=== PATIENT | female | born 1970 | race Caucasian/White ===

== ENCOUNTER → 2020-09-15 13:24 | Outpatient (BNVA) | payer MEDICAID, SELFPAY | PROVIDERS: PCP Family Medicine; Referring Provider Family Medicine; Visit Provider Physician Assistant | DX: K59.09 Other constipation (principal); K62.5 Hemorrhage of anus and rectum | CPT/HCPCS: 99202 ==

== ENCOUNTER 2020-10-12 08:10 | Outpatient (REF) | payer MEDICAID, SELFPAY | END 2020-10-12 08:11 | disposition home or self-care (01) | LOC: HO.LAB 08:10 | PROVIDERS: Visit Provider Internal Medicine | DX: Z20.822 Contact with and (suspected) exposure to COVID-19 (principal) | CPT/HCPCS: C9803; U0003; U0005 ==

== ENCOUNTER 2020-10-31 08:57 | Day surgery (SDC) | payer MEDICAID, SELFPAY ==
[2020-10-24 13:15] VITALS: BMI 37.1
--- NOTE | 2020-10-28 10:43 | HO.ANESPROP2 ---
Documented by User: Leona Cm 10/28/20 10:45 HPI - Anesthesia Eval Consult details Narrative: 50yo F for Colonoscopy PMFSH Active Problems Active Problems: All Active Problems (Updated 09/27/20 @ 10:14 by Steph Orosco PA-C) Chronic constipation (Acute) Rectal bleeding (Acute) Past Medical History Medical History Chronic constipation Depression HLD (hyperlipidemia) Increased BMI Smoker Social History Social History Household Members Other:: Alone Alcohol intake: never Patient Tobacco Use Status: Current everyday Tobacco user Cigarette Packs Per Day: 1 Cigarettes Per Day: 20.0 Use of substances other than those prescribed or required for medical reasons: Yes Substance Use Frequency: Occasionally Are you DNR?: No Advance Directives: No Advance Directives Information Provided: Yes Current occupational status: employed Meds Allergies Allergy/AdvReac Type Severity Reaction Status Date / Time No Known Allergies Allergy Verified 09/15/20 13:33 Home Medications Medication Instructions Recorded Confirmed Last Taken Type ergocalciferol (vitamin D2) 50 mcg 50 mcg PO .weekly cap 09/15/20 09/15/20 Unknown History (2,000 unit) capsule fluoxetine 10 mg capsule 10 mg PO DAILY 09/15/20 09/15/20 Unknown History polyethylene glycol 3350 17 17 g PO DAILY 09/15/20 09/15/20 Unknown History gram/dose oral powder (Miralax) Exam Exam Date and Time: October 28, 2020 1043 Height,Weight and Vital Signs: Height 5 ft 2 in Weight 92.079 kg Assessment and Plan Assessment Anesthesia Assessment: Chart Reviewed Documented by User: Gayle Morales MD 10/31/20 10:47 PMFSH Past Medical History Medical History Chronic constipation Depression HLD (hyperlipidemia) Increased BMI Smoker Surgical History History of Problems with Anesthesia: No Social History Social History Household Members Other:: Alone Alcohol intake: never Patient Tobacco Use Status: Current everyday Tobacco user Cigarette Packs Per Day: 1 Cigarettes Per Day: 20.0 Use of substances other than those prescribed or required for medical reasons: Yes Substance Use Frequency: Occasionally Are you DNR?: No Advance Directives: No Advance Directives Information Provided: Yes Current occupational status: employed Meds Allergies Allergy/AdvReac Type Severity Reaction Status Date / Time No Known Allergies Allergy Verified 09/15/20 13:33 Home Medications Medication Instructions Recorded Confirmed Last Taken Type ergocalciferol (vitamin D2) 50 mcg 50 mcg PO .weekly cap 09/15/20 09/15/20 Unknown History (2,000 unit) capsule fluoxetine 10 mg capsule 10 mg PO DAILY 09/15/20 09/15/20 Unknown History polyethylene glycol 3350 17 17 g PO DAILY 09/15/20 09/15/20 Unknown History gram/dose oral powder (Miralax) Exam Airway Mallampati Class: II TM Dist: >3cm Neck ROM: Full Loose/Missing/Broken Teeth: No Heart: RRR Lungs: CTA Assessment and Plan Assessment Anesthesia Assessment: Anesthesia Plan Discussed Final Anesthetic Review History of Problems with Anesthesia: No NPO: Yes ASA Class: II Final Preanesthetic Review: Meds/Allgs Chart Reviewed, Consent Obtained/Reviewed and Anes Risks/Benef Reviewed Patient Risk: Low Procedure Risk: Low Anesthetic Plan Anesthetic Plan: MAC: Disposition: Standard PACU
[2020-10-31 10:07] VITALS: BP 145/83; PULSE 87; RESP 16; TEMP 36.1; O2SAT 100
[2020-10-31 10:15] LABS: UPreg QC Valid YES; Urine Pregnancy NEGATIVE (NEGATIVE)
[2020-10-31] MEDS: Lactated Ringers 1,000 ML 100 ML IVCONT (10:45)
--- NOTE | 2020-10-31 11:32 | MHC.SHP ---
Pre-Procedural Eval Section A Date of Service: 10/31/20 The patient is an INPATIENT: No The History & Physical has been completed within 30 days and I have reviewed it.: No Section B Chief Complaint: Rectal Bleeding Relevant Family History (Specify if Yes): No Present Medications: see Short Stay Collaborative assessment Medical History: Significant History (Chronic constipation, hyperlipidemia) History of Previous Operations: No relevant previous surgery Allergies: Allergies Allergy/AdvReac Type Severity Reaction Status Date / Time No Known Allergies Allergy Verified 09/15/20 13:33 Review of Systems Sugical H&P ROS: Negative: Constitution, Cardiovascular and Respiratory and Yes, Specify: Gastrointestinal (rectal bleeding, constipation) Exam Surgical H&P Exam: Normal: Heart, Normal: Lungs, Normal: Extremities and Normal: Abdomen Plan Diagnosis/Plan: Unchanged I have reviewed the history and physical and performed a pertinent physical examination on my patient. No changes have occurred unless specified.
--- NOTE | 2020-10-31 11:40 | P.BOP_ITS ---
Brief Operative Note Date of Service: 10/31/20 Pre-op diagnosis: Colon cancer screening, chronic constipation, rectal bleeding Post-op diagnosis: other (Colon polyps, diverticulosis, hemorrhoids, AVM TC) Procedure: COLONOSCOPY TILL CECUM WITH BIOPSIES AND SNARE POLYPECTOMY Consent: Indications for the procedure and potential complications of bleeding, perforation, reaction to medications and missed diagnosis were discussed with the patient and informed consent was obtained. Instrument: Olympus PCF H 190 L variable stiffness pediatric colonoscope Monitoring: Vital signs and clinical assessment, intermittent blood pressure monitoring, continuous EKG monitoring, Pulse oximetry and Carbon Dioxide monitoring were done throughout the procedure. Colon withdrawl time was 19 minutes. Procedure: The patient was placed in the left lateral decubitis position and pre-procedure medications were administered. After a digital rectal examination of the ano-rectum, the video colonoscope was inserted into the rectum and advanced through the colon to the cecum. The colonoscope was slowly withdrawn in a retrograde panoramic fashion and the colon mucosa was carefully examined including a retroflexed view of the rectum. Findings and interventions are described below. Procedure Difficulty: Without difficulty Findings: Terminal Ileum: Not evaluated Cecum: Normal Ascending Colon: Normal Transverse Colon: A 15 mm sessile polyp in prox TC/hepatic flexure removed with a hot snare A 7-8 mm non-bleeding AVM. Descending Colon: Normal Sigmoid Colon: A 3-4 mm sessile polyp removed with a cold bx. Moderate diverticulosis Rectum: A 10 mm diminutive appearing polyp removed with a cold snare. Ano-rectum: Moderate internal hemorrhoids and perianal skin tags Colon preparation: Good Impression and Post Procedure Diagnosis: Colonoscopy Findings: Three small to medium sized polyps removed Moderate diverticulosis seen in the sigmoid colon Moderate hemorrhoids on retroflexed exam. Plan: Await pathology results Patient has an appointment on 11/30/20 in the [facility] with EMILY Collins . Repeat Colonoscopy interval based on path results - in 3-5 years if polyps are adenomatous and 10 years if polyps are hyperplastic. Above findings were reviewed with the patient and colon polyps and diverticulosis handouts were given in the discharge area Surgeon: Kaylan Hilliard MD Anesthesia: MAC (Dr Morales) Was an Junior Account Manager used for this Procedure?: Yes Junior Account Manager: Danielito Rendon Estimated blood loss (mL): 0 Pathology: other (A- TRANSVERSE COLON POLYP B- SIGMOID POLYP C- RECTAL POLYP) Condition: stable Disposition: PACU
[2020-10-31 12:14] VITALS: BP 123/78; PULSE 92; RESP 16; TEMP 36.8; O2SAT 99
[2020-10-31 12:29] VITALS: BP 131/82; PULSE 85; RESP 18; O2SAT 100
--- NOTE | 2020-11-06 18:12 | P.OP_ITS ---
Operative Note Operative Note Date of Service: 10/31/20 Narrative: Pre-op diagnosis:?Colon cancer screening, chronic constipation, rectal bleeding Post-op diagnosis:?other (Colon polyps, diverticulosis, hemorrhoids, AVM TC) Procedure:?COLONOSCOPY TILL CECUM WITH BIOPSIES AND SNARE POLYPECTOMY Consent: Indications for the procedure and potential complications of bleeding, perforation, reaction to medications and missed diagnosis were discussed with the patient and informed consent was obtained. Instrument: Olympus PCF H 190 L variable stiffness pediatric colonoscope Monitoring: Vital signs and clinical assessment, intermittent blood pressure monitoring, continuous EKG monitoring, Pulse oximetry and Carbon Dioxide monitoring were done throughout the procedure. Colon withdrawl time was 19 minutes. Procedure: The patient was placed in the left lateral decubitis position and pre-procedure medications were administered. After a digital rectal examination of the ano-rectum, the video colonoscope was inserted into the rectum and advanced through the colon to the cecum. The colonoscope was slowly withdrawn in a retrograde panoramic fashion and the colon mucosa was carefully examined including a retroflexed view of the rectum. Findings and interventions are described below. Procedure Difficulty: Without difficulty Findings: Terminal Ileum: Not evaluated Cecum:? Normal Ascending Colon:? Normal Transverse Colon:? A 15 mm sessile polyp in prox TC/hepatic flexure removed with a hot snare A 7-8 mm non-bleeding AVM. Descending Colon:? Normal Sigmoid Colon:? A 3-4 mm sessile polyp removed with a cold bx.? Moderate diverticulosis Rectum:? A 10 mm diminutive appearing polyp removed with a cold snare. Ano-rectum:? Moderate internal hemorrhoids and perianal skin tags Colon preparation:? Good? Impression and Post Procedure Diagnosis: Colonoscopy Findings: Three small to medium sized polyps removed Moderate diverticulosis seen in the sigmoid colon Moderate hemorrhoids on retroflexed exam. Plan: Await pathology results Patient has an appointment on 11/30/20 in the GI Clinic with EMILY Collins . Repeat Colonoscopy interval based on path results - in 3-5 years if polyps are adenomatous and 10 years if polyps are hyperplastic. Above findings were reviewed with the patient and colon polyps and diverticulosis handouts were given in the discharge area Surgeon:?Kaylan Hilliard MD Anesthesia:?MAC : Dr Morales Was an Chief Knowledge Officer used for this Procedure?:?Yes Chief Knowledge Officer:?Danielito Rendon Estimated blood loss (mL):?0 Pathology:?other (A- TRANSVERSE COLON POLYP? B- SIGMOID POLYP? C- RECTAL POLYP) Condition:?stable Disposition:?PACU
== END 2020-10-31 12:30 ==
LOC: HO.SSS 08:57
PROVIDERS: Nurse Practitioner; Visit Provider Internal Medicine Gastroenterology
PROC: 0DJD8ZZ Inspection of Lower Intestinal Tract, Via Natural or Artificial Opening Endoscopic (ICD-10-PCS; CPT 45378; principal; 2020-10-31 11:10)
DX: K62.5 Hemorrhage of anus and rectum (principal); K59.09 Other constipation; D12.3 Benign neoplasm of transverse colon; D12.5 Benign neoplasm of sigmoid colon; K62.1 Rectal polyp; K55.20 Angiodysplasia of colon without hemorrhage; K57.30 Diverticulosis of large intestine without perforation or abscess without bleeding; K64.8 Other hemorrhoids; K64.4 Residual hemorrhoidal skin tags; F17.210 Nicotine dependence, cigarettes, uncomplicated; Z79.899 Other long term (current) drug therapy
CPT/HCPCS: 45385; 45380; 81025; 88305

== ENCOUNTER 2020-10-31 17:54 | Emergency (ER) | payer MEDICAID, SELFPAY ==
[2020-10-31 18:16] VITALS: BP 117/61; PULSE 95; RESP 18; TEMP 37; O2SAT 100; BMI 37.3
--- NOTE | 2020-10-31 18:19 | ED_ITS ---
HPI - General Adult General Chief complaint: General Medical Stated complaint: fever Time Seen by Provider: 10/31/20 18:17 Related Data Home Medications Medication Instructions Recorded Confirmed ergocalciferol (vitamin D2) 50 mcg 50 mcg PO .weekly cap 09/15/20 09/15/20 (2,000 unit) capsule fluoxetine 10 mg capsule 10 mg PO DAILY 09/15/20 09/15/20 polyethylene glycol 3350 17 17 g PO DAILY 09/15/20 09/15/20 gram/dose oral powder (Miralax) Previous Rx's Medication Instructions Recorded hydrocortisone 2.5 % topical cream 1 appl LA BID PRN #30 g 09/15/20 with perineal applicator (Proctozone-HC) Allergies Allergy/AdvReac Type Severity Reaction Status Date / Time No Known Allergies Allergy Verified 10/31/20 18:15 PMFSH Past Medical History Medical History Chronic constipation Depression HLD (hyperlipidemia) Increased BMI Smoker Social History Social History Household Members Other:: Alone Alcohol intake: never Patient Tobacco Use Status: Current everyday Tobacco user Cigarette Packs Per Day: 1 Cigarettes Per Day: 20.0 Advance Directives: Yes Advance Directives Information Provided: Yes Advance Directives on File: No Current occupational status: employed Physical Exam Vital Signs: Vital Signs: Last Vital Signs Temp 98.6 F 10/31/20 18:16 Pulse 95 10/31/20 18:16 Resp 18 10/31/20 18:16 BP 117/61 10/31/20 18:16 Pulse Ox 100 10/31/20 18:16 Body Mass Index 37.3 Course Course Course Narrative: Patient presents to the ED for fever after having colonscpy procedure done today. Patient states only fever and chills. Patient states no other physical complaints. Patient not vaccinated against covid. labs, and SARS covid swab ordered. Medical Decision Making Lab Data Result diagrams: 10/31/20 20:51 10/31/20 20:51 Labs: Lab Results 10/31/20 10/31/20 10/31/20 Range/Units 20:51 20:51 20:51 WBC 13.5 H (4.8-10.8) X10*3/uL RBC 5.05 (4.20-5.50) X10*6/uL Hgb 14.6 (12.0-16.0) g/dl Hct 45.3 (37-47) % MCV 89.7 (80-98) fL MCH 28.9 (27.0-33.0) pg MCHC 32.2 (31.0-35.0) g/dl RDW 13.4 (11.0-16.0) % Plt Count 220 (160-400) X10*3/uL MPV 11.2 (9.4-12.3) fL Immature Gran % (Auto) 0.6 H (0.0-0.4) % Neut % (Auto) 76.4 H (45-73) % Lymph % (Auto) 15.8 L (20-40) % [place] % (Auto) 6.5 (2-11) % Eos % (Auto) 0.4 (0-4) % Baso % (Auto) 0.3 (0-2) % Lymph # (Auto) 2.1 (1.2-4.9) X10*3/uL [place] # (Auto) 0.9 (0.1-1.2) X10*3/uL Eos # (Auto) 0.1 (0.0-0.4) X10*3/uL Baso # (Auto) 0.0 (0.0-0.2) X10*3/uL Abs Immat Gran (auto) 0.08 H (0.00-0.03) X10*3/uL Absolute Neuts (auto) 10.3 H (2.0-8.3) X10*3/uL Absolute Nucleated RBC 0.000 (0.0-0.012) X10*3/uL Nucleated RBC % (auto) 0.0 (0.0-0.2) /100WBC Sodium 139 (135-145) mmol/L Potassium 4.2 (3.3-5.1) mmol/L Chloride 105 (96-108) mmol/L Carbon Dioxide 24 (22-29) mmol/L Anion Gap 14 (12-20) BUN 10 (9-16) mg/dL Creatinine 0.66 (0.5-1.4) mg/dL Estim Creat Clear Calc 109.1 Estimated GFR > 60 Random Glucose 96 (60-115) mg/dL Calcium 9.1 (8.4-10.2) mg/dL Total Bilirubin 0.4 (0.0-1.0) mg/dL Direct Bilirubin 0.2 (0.0-0.5) mg/dL AST 21 (5-31) U/L ALT 22 (0-31) U/L Alkaline Phosphatase 93 (39-117) U/L Total Protein 7.5 (6.5-8.0) g/dL Albumin 4.3 (3.5-5.0) g/dL Lipase 19 (8-78) U/L Urine Color Urine Appearance Urine pH (5.0-8.0) Ur Specific [place] (1.005-1.025) Urine Protein (NEG-TRACE) MG/DL Urine Glucose (UA) (NEG) MG/DL Urine Ketones (NEG) MG/DL Urine Blood (NEG) Urine Nitrite (NEG) Ur Leukocyte Esterase (NEG) Urine Test (NEGATIVE) Coronavirus (PCR) NEGATIVE (Negative) Influenza Type A (PCR) NEGATIVE (Negative) Influenza Type B (PCR) NEGATIVE (Negative) RSV RNA Qual (PCR) NEGATIVE (Negative) 10/31/20 10/31/20 Range/Units 20:51 20:51 WBC (4.8-10.8) X10*3/uL RBC (4.20-5.50) X10*6/uL Hgb (12.0-16.0) g/dl Hct (37-47) % MCV (80-98) fL MCH (27.0-33.0) pg MCHC (31.0-35.0) g/dl RDW (11.0-16.0) % Plt Count (160-400) X10*3/uL MPV (9.4-12.3) fL Immature Gran % (Auto) (0.0-0.4) % Neut % (Auto) (45-73) % Lymph % (Auto) (20-40) % [place] % (Auto) (2-11) % Eos % (Auto) (0-4) % Baso % (Auto) (0-2) % Lymph # (Auto) (1.2-4.9) X10*3/uL [place] # (Auto) (0.1-1.2) X10*3/uL Eos # (Auto) (0.0-0.4) X10*3/uL Baso # (Auto) (0.0-0.2) X10*3/uL Abs Immat Gran (auto) (0.00-0.03) X10*3/uL Absolute Neuts (auto) (2.0-8.3) X10*3/uL Absolute Nucleated RBC (0.0-0.012) X10*3/uL Nucleated RBC % (auto) (0.0-0.2) /100WBC Sodium (135-145) mmol/L Potassium (3.3-5.1) mmol/L Chloride (96-108) mmol/L Carbon Dioxide (22-29) mmol/L Anion Gap (12-20) BUN (9-16) mg/dL Creatinine (0.5-1.4) mg/dL Estim Creat Clear Calc Estimated GFR Random Glucose (60-115) mg/dL Calcium (8.4-10.2) mg/dL Total Bilirubin (0.0-1.0) mg/dL Direct Bilirubin (0.0-0.5) mg/dL AST (5-31) U/L ALT (0-31) U/L Alkaline Phosphatase (39-117) U/L Total Protein (6.5-8.0) g/dL Albumin (3.5-5.0) g/dL Lipase (8-78) U/L Urine Color YELLOW Urine Appearance CLEAR Urine pH 6.5 (5.0-8.0) Ur Specific [place] 1.020 (1.005-1.025) Urine Protein NEG (NEG-TRACE) MG/DL Urine Glucose (UA) NEG (NEG) MG/DL Urine Ketones NEG (NEG) MG/DL Urine Blood NEG (NEG) Urine Nitrite NEG (NEG) Ur Leukocyte Esterase NEG (NEG) Urine Test NEGATIVE (NEGATIVE) Coronavirus (PCR) (Negative) Influenza Type A (PCR) (Negative) Influenza Type B (PCR) (Negative) RSV RNA Qual (PCR) (Negative) Discharge Plan Discharge Clinical Impression: Fever Patient Disposition: Left Without Being Seen Interventions: LWBS Worksheet Last Done: 11/01/20 00:27 Discharge Date/Time: 11/01/20 00:31
[2020-10-31 21:05] LABS: MANUAL DIFF FLAG NO
[2020-10-31 21:07] LABS: Basophils Percent Auto 0.3 % (0-2); Eosinophils Absolute Auto 0.1 X10*3/uL (0.0-0.4); Eosinophils Percent Auto 0.4 % (0-4); Hematocrit 45.3 % (37-47); Hemoglobin 14.6 g/dl (12.0-16.0); Imm Gran Abs Auto 0.08 X10*3/uL (0.00-0.03); Imm Gran Pct Auto 0.6 % (0.0-0.4); Lymphocytes Absolute Auto 2.1 X10*3/uL (1.2-4.9); Lymphocytes Percent Auto 15.8 % (20-40); Mean Corpuscular HGB Conc 32.2 g/dl (31.0-35.0); Mean Corpuscular Hemoglobin 28.9 pg (27.0-33.0); Mean Corpuscular Volume 89.7 fL (80-98); Mean Platelet Volume 11.2 fL (9.4-12.3); Monocytes Absolute Auto 0.9 X10*3/uL (0.1-1.2); Monocytes Percent Auto 6.5 % (2-11); Neutrophils Absolute Auto 10.3 X10*3/uL (2.0-8.3); Neutrophils Percent Auto 76.4 % (45-73); Platelet Count 220 X10*3/uL (160-400); Red Blood Count 5.05 X10*6/uL (4.20-5.50); Red Cell Distribution Width 13.4 % (11.0-16.0); White Blood Count 13.5 X10*3/uL (4.8-10.8)
[2020-10-31 21:08] LABS: Glucose Urine UA NEG (NEG); Leukocyte Esterase Urine NEG (NEG); Nitrite Urine NEG (NEG); PH 6.5 (5.0-8.0); Urine Blood NEG (NEG); Urine Ketones NEG (NEG); Urine Protein NEG (NEG-TRACE)
[2020-10-31 21:11] LABS: Appearance Urine CLEAR; Color Urine YELLOW; UPreg QC Valid YES; Urine Pregnancy NEGATIVE (NEGATIVE)
[2020-10-31 21:36] LABS: Alanine Aminotransferase 22 U/L (0-31); Albumin Level 4.3 g/dL (3.5-5.0); Alkaline Phosphatase 93 U/L (39-117); Anion Gap 14 (12-20); Aspartate Amino Transferase 21 U/L (5-31); Bilirubin Direct 0.2 mg/dL (0.0-0.5); Bilirubin Total 0.4 mg/dL (0.0-1.0); Blood Urea Nitrogen 10 mg/dL (9-16); Calcium 9.1 mg/dL (8.4-10.2); Carbon Dioxide 24 mmol/L (22-29); Chloride 105 mmol/L (96-108); Creatinine Clr Calc Pharmacy 109.1; Estimated Glomerular Filt Rate > 60; Glucose Random 96 mg/dL (60-115); Lipase 19 U/L (8-78); Potassium 4.2 mmol/L (3.3-5.1); Sodium 139 mmol/L (135-145); Total Protein 7.5 g/dL (6.5-8.0)
[2020-10-31 22:54] LABS: Influenza A PCR NEGATIVE (Negative); Influenza B PCR NEGATIVE (Negative); Resp Syncy Virus RNA Qual PCR NEGATIVE (Negative); SARS COV2 PCR INHOUSE NEGATIVE (Negative)
== END 2020-11-01 00:31 | disposition left against medical advice (07) ==
PROVIDERS: Physician Assistant; Emergency Provider Emergency Medicine
DX: R50.9 Fever, unspecified (principal); Z20.822 Contact with and (suspected) exposure to COVID-19; E78.5 Hyperlipidemia, unspecified; F17.210 Nicotine dependence, cigarettes, uncomplicated; Z79.899 Other long term (current) drug therapy
CPT/HCPCS: 0241U; 36415; 74177; 80048; 80053; 80076; 81001; 81003; 81025; 82248; 83690; 83735; 85025; 87651; 99283; 99284; Q9967

== ENCOUNTER 2020-11-01 11:29 | Emergency (ER) | payer MEDICAID, SELFPAY ==
--- NOTE | ~2020-11-01 | CT_ITS ---
EXAMINATION: CT ABDOMEN AND PELVIS WITH CONTRAST CLINICAL INFORMATION: 1 day status post colonoscopy. Fever, abdominal pain. Evaluate for perforation. COMPARISON: None TECHNIQUE: Multidetector volumetric images were obtained from the superior aspect of the liver through the pubic symphysis following administration 85 mL of Omnipaque 350 intravenous contrast. Sagittal and coronal reformatted images were obtained on the technologist's workstation. Oral contrast: No This CT examination was performed using dose optimization techniques as appropriate, variously including the following: *Automated exposure control *Adjustment of mA and/or kV according to patient size (this includes techniques or standardized protocols for targeted exams where dose is matched to indication/reason for exam; i.e. extremities or head) *Use of iterative reconstruction technique DLP: 814 mGy-cm FINDINGS: LUNG BASES: The visualized lung bases are unremarkable. LIVER, GALLBLADDER, AND BILIARY TREE: The liver is normal in size, shape, and attenuation. Simple appearing left hepatic cyst measuring 1.4 cm. No additional focal hepatic lesion or biliary ductal dilatation is present. The gallbladder is unremarkable with no evidence of radiopaque gallstones, gallbladder wall thickening, or obvious pericholecystic inflammatory changes. PANCREAS: Unremarkable. SPLEEN: Unremarkable. ADRENAL GLANDS: Enlarged and lobulated bilateral adrenal glands. Probable right adrenal nodule measuring 1.6 x 2 x 1.7 cm as well as 49 Hounsfield units. Probable left adrenal nodule measuring 1.9 x 2.5 x 3.0 cm and 28.8 Hounsfield units. Findings are consistent with probable adenomas. Adrenal washout CT or chemical shift MRI are recommended to help further evaluate. KIDNEYS AND URETERS: The kidneys are normal in size, shape, and attenuation. Right midpole 0.2 cm nonobstructing renal stone located approximately 10.7 cm from the posterior axillary line. No additional renal or ureteral stone. No hydronephrosis or hydroureter. No perinephric stranding. BLADDER: Nondistended and unremarkable. GASTROINTESTINAL TRACT: No bowel wall thickening or associated fat or change. No small or large bowel obstruction. Unremarkable appendix. PERITONEAL CAVITY: No intra-abdominal free air or free fluid. No organized fluid collection/abscess formation. ABDOMINAL WALL: No significant hernia is appreciated. LYMPH NODES: Normal. VASCULAR: Unremarkable. PELVIC VISCERA: The uterus and adnexa are unremarkable. OSSEOUS STRUCTURES: Unremarkable. CT/CT abdomen pelvis w con IMPRESSION: 1. No evidence of bowel perforation. No intra-abdominal free air or free fluid. No organized fluid collection/abscess formation. 2. No bowel wall thickening or associated inflammatory change. No small or large bowel traction. Unremarkable appendix. 3. Enlarged bilateral adrenals with probable bilateral adenomas. Adrenal washout CT or chemical shift MRI are recommended to help further evaluate.
[2020-11-01 13:09] VITALS: BP 151/87; PULSE 80; RESP 18; TEMP 37.1; O2SAT 98; BMI 36.1
[2020-11-01 13:32] LABS: MANUAL DIFF FLAG NO
[2020-11-01 13:34] LABS: Basophils Percent Auto 0.3 % (0-2); Eosinophils Absolute Auto 0.1 X10*3/uL (0.0-0.4); Eosinophils Percent Auto 0.3 % (0-4); Hematocrit 46.3 % (37-47); Hemoglobin 15.2 g/dl (12.0-16.0); Imm Gran Abs Auto 0.04 X10*3/uL (0.00-0.03); Imm Gran Pct Auto 0.3 % (0.0-0.4); Lymphocytes Absolute Auto 2.1 X10*3/uL (1.2-4.9); Lymphocytes Percent Auto 14.4 % (20-40); Mean Corpuscular HGB Conc 32.8 g/dl (31.0-35.0); Mean Corpuscular Hemoglobin 29.5 pg (27.0-33.0); Mean Corpuscular Volume 89.7 fL (80-98); Mean Platelet Volume 10.7 fL (9.4-12.3); Monocytes Percent Auto 6.7 % (2-11); Neutrophils Absolute Auto 11.2 X10*3/uL (2.0-8.3); Platelet Count 205 X10*3/uL (160-400); Red Blood Count 5.16 X10*6/uL (4.20-5.50); Red Cell Distribution Width 13.2 % (11.0-16.0); White Blood Count 14.4 X10*3/uL (4.8-10.8)
[2020-11-01 14:04] LABS: Anion Gap 14 (12-20); Blood Urea Nitrogen 9 mg/dL (9-16); Calcium 9.3 mg/dL (8.4-10.2); Carbon Dioxide 23 mmol/L (22-29); Chloride 106 mmol/L (96-108); Creatinine Clr Calc Pharmacy 118.6; Estimated Glomerular Filt Rate > 60; Glucose Random 91 mg/dL (60-115); Potassium 4.2 mmol/L (3.3-5.1); Sodium 139 mmol/L (135-145)
[2020-11-01 19:56] VITALS: BP 162/78; PULSE 82; RESP 18; TEMP 37.2; O2SAT 98
--- NOTE | 2020-11-01 20:21 | ED.FEVER ---
HPI - Fever General Chief Complaint: Fever Stated Complaint: Fever Time Seen by Provider: 11/01/20 19:16 Source: patient Mode of arrival: ambulatory Limitations: no limitations History of Present Illness HPI Narrative: 50-year-old female with a past medical history of hyperlipidemia, chronic constipation here with complaints of fever up to 102, body aches, sore throat abdominal pain. Patient tells me that yesterday she had a colonoscopy by Dr. Hilliard under propofol only. Several hours after getting home he started to develop symptoms. She denies any nausea, vomiting, diarrhea. No cough for shortness of breath. She has not received a COVID vaccine. Patient tells me she came here to the emergency department yesterday and had some labs drawn, urine done, COVID screen but after waiting in the waiting room decided to go home. She returns today for persistent symptoms. Related Data Home Medications Medication Instructions Recorded Confirmed ergocalciferol (vitamin D2) 50 mcg 50 mcg PO .weekly cap 09/15/20 09/15/20 (2,000 unit) capsule fluoxetine 10 mg capsule 10 mg PO DAILY 09/15/20 09/15/20 polyethylene glycol 3350 17 17 g PO DAILY 09/15/20 09/15/20 gram/dose oral powder (Miralax) Previous Rx's Medication Instructions Recorded hydrocortisone 2.5 % topical cream 1 appl MS BID PRN #30 g 09/15/20 with perineal applicator (Proctozone-HC) Allergies Allergy/AdvReac Type Severity Reaction Status Date / Time No Known Allergies Allergy Verified 10/31/20 18:15 Review of Systems Review of Systems: Yes all other systems are reviewed and are negative Constitutional: Constitutional: Reports no additional constitutional complaints, Denies body ache(s), Denies chills, Reports fever(s), Denies headache(s) and Denies weakness Eyes: Eyes: Reports no additional eye complaints and Denies change in vision ENT: Reports system reviewed and no additional complaints, except as documented, Denies dizziness, Denies headache(s), Denies nasal congestion, Denies nasal discharge, Denies neck pain and Reports sore throat Cardiovascular: Cardiovascular: Reports no additional cardiovascular complaints, Denies chest pain, Denies leg edema and Denies dyspnea Respiratory: Respiratory: Reports no additional respiratory complaints, Denies cough and Denies dyspnea Gastrointestinal: Gastrointestinal: Reports no additional gastrointestinal complaints, Reports abdominal pain, Denies diarrhea, Denies nausea and Denies vomiting Genitourinary: Genitourinary: Reports no additional female genitourinary complaints and Denies urinary incontinence Musculoskeletal: Musculoskeletal: Reports no additional musculoskeletal complaints, Denies back pain, Denies arthralgias, Denies joint swelling, Denies neck pain, Denies numbness and Denies tingling Integumentary/Breasts: Skin/Breast: Reports system reviewed and no additional complaints, except as docu and Denies rash Neurologic: Reports system reviewed and no additional complaints, except as documented, Denies Abnormal speech present, Denies dizziness, Denies headache(s), Denies numbness, Denies tingling and Denies weakness PMFSH Past Medical History Attestation statement: The following information was validated with the patient. Source: old records reviewed and nursing notes reviewed Medical History Chronic constipation Depression HLD (hyperlipidemia) Increased BMI Smoker Social History Social History Household Members Other:: Alone Alcohol intake: never Patient Tobacco Use Status: Current everyday Tobacco user Cigarette Packs Per Day: 1 Cigarettes Per Day: 20.0 Advance Directives: Yes Advance Directives Information Provided: Yes Advance Directives on File: No Current occupational status: employed Physical Exam Vital Signs: Vital Signs: Last Vital Signs Temp 99 F 11/01/20 19:56 Pulse 82 11/01/20 19:56 Resp 18 11/01/20 19:56 BP 162/78 H 11/01/20 19:56 Pulse Ox 98 11/01/20 19:56 Body Mass Index 36.1 Const: General: cooperative, healthy appearing, comfortable and no acute distress Orientation/consciousness: patient oriented x3 Limitations: no limitations HENMT: Head: Yes normal to inspection Ears: hearing grossly normal bilaterally General nose exam: Normal external nose present Face and sinus: Yes normal facial exam Mouth: Normal oral and palatal mucosa present Throat: Yes posterior oropharynx normal Eyes: General: appearance normal, both eyes and all related structures Pupils: Equal, round and reactive pupils present Neck: Neck: Yes normal visual inspection Chest: Chest palpation & inspection: normal inspection of the chest Resp: Effort & Inspection: normal respiratory effort Auscultation: clear to auscultation bilaterally Cardio: Rate: regular rate Rhythm: regular rhythm Peripheral pulses: Peripheral pulses 2+ throughout GI: Inspection: Yes normal to inspection Palpation (GI): Soft to palpation, Tenderness to palpation present (GI) (Diffusely tender-mild) Negative for with no rebound tenderness and no guarding Auscultation: normal bowel sounds Back/Spine/Pelvis: Thoracic/Lumbar Spine: thoracic and lumbar spine normal to inspection Skin: General skin exam: no rashes or lesions noted Neuro: General: patient oriented x3, no focal motor deficits and normal sensation to monofilament Cranial nerves: Yes Equal, round and reactive pupils present Cognition (Neuro): normal cognition Speech: No Abnormal speech present Gait exam (Neuro): Normal gait present Motor exam (neuro): 5/5 motor strength present throughout Extrem: General: Yes normal to inspection Course Course Course Narrative: 50-year-old female who underwent a colonoscopy yesterday under conscious sedation with propofol fall here with complaints of fever up to 102, generalized abdominal pain and some sore throat which began after the procedure at home. On arrival the patient has mild diffuse abdominal tenderness with no rebound or guarding. No fever on arrival. Will check labs, UA, COVID screen, CT. 2200-show mild leukocytosis with no shift. All other labs are unremarkable. Urine is negative. COVID screen negative. CT shows no acute findings. I discussed this with the patient. She has been afebrile here and has been in the emergency department for greater than 10 hours. We did discuss the a low-grade fever postoperatively is not abnormal. Discussed that she should follow-up with her outpatient securities consultant. Reviewed worrisome signs and symptoms of when to return to the emergency department. Comfortable discharge home. MDM - Fever Medical Records Attestation: I reviewed the patient's medical records. Lab Data Attestation: I reviewed the patient's lab results. Result diagrams: 11/01/20 13:26 11/01/20 13:26 Labs: Lab Results 11/01/20 11/01/20 11/01/20 Range/Units 13:26 13:26 19:51 WBC 14.4 H (4.8-10.8) X10*3/uL RBC 5.16 (4.20-5.50) X10*6/uL Hgb 15.2 (12.0-16.0) g/dl Hct 46.3 (37-47) % MCV 89.7 (80-98) fL MCH 29.5 (27.0-33.0) pg MCHC 32.8 (31.0-35.0) g/dl RDW 13.2 (11.0-16.0) % Plt Count 205 (160-400) X10*3/uL MPV 10.7 (9.4-12.3) fL Immature Gran % (Auto) 0.3 (0.0-0.4) % Neut % (Auto) 78.0 H (45-73) % Lymph % (Auto) 14.4 L (20-40) % [place] % (Auto) 6.7 (2-11) % Eos % (Auto) 0.3 (0-4) % Baso % (Auto) 0.3 (0-2) % Lymph # (Auto) 2.1 (1.2-4.9) X10*3/uL [place] # (Auto) 1.0 (0.1-1.2) X10*3/uL Eos # (Auto) 0.1 (0.0-0.4) X10*3/uL Baso # (Auto) 0.0 (0.0-0.2) X10*3/uL Abs Immat Gran (auto) 0.04 H (0.00-0.03) X10*3/uL Absolute Neuts (auto) 11.2 H (2.0-8.3) X10*3/uL Absolute Nucleated RBC 0.000 (0.0-0.012) X10*3/uL Nucleated RBC % (auto) 0.0 (0.0-0.2) /100WBC Sodium 139 (135-145) mmol/L Potassium 4.2 (3.3-5.1) mmol/L Chloride 106 (96-108) mmol/L Carbon Dioxide 23 (22-29) mmol/L Anion Gap 14 (12-20) BUN 9 (9-16) mg/dL Creatinine 0.62 (0.5-1.4) mg/dL Estim Creat Clear Calc 118.6 Estimated GFR > 60 Random Glucose 91 (60-115) mg/dL Calcium 9.3 (8.4-10.2) mg/dL Magnesium 2.1 (1.6-2.6) mg/dL Total Bilirubin 0.3 (0.0-1.0) mg/dL Direct Bilirubin < 0.2 (0.0-0.5) mg/dL AST 21 (5-31) U/L ALT 19 (0-31) U/L Alkaline Phosphatase 85 (39-117) U/L Total Protein 7.0 (6.5-8.0) g/dL Albumin 4.1 (3.5-5.0) g/dL Urine Color Urine Appearance Urine pH (5.0-8.0) Ur Specific [place] (1.005-1.025) Urine Protein (NEG-TRACE) MG/DL Urine Glucose (UA) (NEG) MG/DL Urine Ketones (NEG) MG/DL Urine Blood (NEG) Urine Nitrite (NEG) Ur Leukocyte Esterase (NEG) Urine RBC (0) /HPF Urine WBC (0-4) /HPF Ur Squamous Epith Cells /LPF Urine Bacteria /LPF Urine Mucus /LPF Urine Test (NEGATIVE) Coronavirus (PCR) (Negative) Influenza Type A (PCR) (Negative) Influenza Type B (PCR) (Negative) RSV RNA Qual (PCR) (Negative) 11/01/20 11/01/20 11/01/20 Range/Units 19:51 21:34 21:34 WBC (4.8-10.8) X10*3/uL RBC (4.20-5.50) X10*6/uL Hgb (12.0-16.0) g/dl Hct (37-47) % MCV (80-98) fL MCH (27.0-33.0) pg MCHC (31.0-35.0) g/dl RDW (11.0-16.0) % Plt Count (160-400) X10*3/uL MPV (9.4-12.3) fL Immature Gran % (Auto) (0.0-0.4) % Neut % (Auto) (45-73) % Lymph % (Auto) (20-40) % [place] % (Auto) (2-11) % Eos % (Auto) (0-4) % Baso % (Auto) (0-2) % Lymph # (Auto) (1.2-4.9) X10*3/uL [place] # (Auto) (0.1-1.2) X10*3/uL Eos # (Auto) (0.0-0.4) X10*3/uL Baso # (Auto) (0.0-0.2) X10*3/uL Abs Immat Gran (auto) (0.00-0.03) X10*3/uL Absolute Neuts (auto) (2.0-8.3) X10*3/uL Absolute Nucleated RBC (0.0-0.012) X10*3/uL Nucleated RBC % (auto) (0.0-0.2) /100WBC Sodium (135-145) mmol/L Potassium (3.3-5.1) mmol/L Chloride (96-108) mmol/L Carbon Dioxide (22-29) mmol/L Anion Gap (12-20) BUN (9-16) mg/dL Creatinine (0.5-1.4) mg/dL Estim Creat Clear Calc Estimated GFR Random Glucose (60-115) mg/dL Calcium (8.4-10.2) mg/dL Magnesium (1.6-2.6) mg/dL Total Bilirubin (0.0-1.0) mg/dL Direct Bilirubin (0.0-0.5) mg/dL AST (5-31) U/L ALT (0-31) U/L Alkaline Phosphatase (39-117) U/L Total Protein (6.5-8.0) g/dL Albumin (3.5-5.0) g/dL Urine Color YELLOW Urine Appearance CLEAR Urine pH 6.0 (5.0-8.0) Ur Specific [place] 1.025 (1.005-1.025) Urine Protein NEG (NEG-TRACE) MG/DL Urine Glucose (UA) NEG (NEG) MG/DL Urine Ketones 5 (NEG) MG/DL Urine Blood TRACE (NEG) Urine Nitrite NEG (NEG) Ur Leukocyte Esterase NEG (NEG) Urine RBC 0-2 (0) /HPF Urine WBC 1-4 (0-4) /HPF Ur Squamous Epith Cells TRACE /LPF Urine Bacteria 2+ /LPF Urine Mucus 1+ /LPF Urine Test NEGATIVE (NEGATIVE) Coronavirus (PCR) NEGATIVE (Negative) Influenza Type A (PCR) NEGATIVE (Negative) Influenza Type B (PCR) NEGATIVE (Negative) RSV RNA Qual (PCR) NEGATIVE (Negative) Imaging Data CT scan - abdomen: Attestation: I personally reviewed and interpreted this imaging study as follows: Radiologist's impression: IMPRESSION: 1. No evidence of bowel perforation. No intra-abdominal free air or free fluid. No organized fluid collection/abscess formation. ? 2. No bowel wall thickening or associated inflammatory change. No small or large bowel traction. Unremarkable appendix. ? 3. Enlarged bilateral adrenals with probable bilateral adenomas. Adrenal washout CT or chemical shift MRI are recommended to help further evaluate.? Discharge Plan Discharge Clinical Impression: Abdominal pain Patient Disposition: Home, Self-Care Instructions: Abdominal Pain (ED) Additional Instructions: Your labs look normal. Your urine shows no evidence of infection. Her COVID screen was negative. Your CT looks unremarkable. It is not abnormal to have a fever after having anesthesia. Please follow-up with your primary care doctor and GI Prescriptions: No Action ergocalciferol (vitamin D2) 50 mcg (2,000 unit) capsule 50 mcg PO .weekly RF: 0 fluoxetine 10 mg capsule 10 mg PO DAILY RF: 0 polyethylene glycol 3350 [Miralax] 17 gram/dose powder 17 g PO DAILY RF: 0 hydrocortisone [Proctozone-HC] 2.5 % cream with perineal applicator 1 appl MS BID PRN (Reason: hemorrhoids) Qty: 30 RF: 3 Referrals: [facility] [Primary Care Provider] - 2 days Stand Alone Forms: Work/School Release Interventions: ED Discharge Assessment Last Done: 11/01/20 22:05 Discharge Date/Time: 11/01/20 22:05
[2020-11-01 20:22] LABS: Alanine Aminotransferase 19 U/L (0-31); Albumin Level 4.1 g/dL (3.5-5.0); Alkaline Phosphatase 85 U/L (39-117); Aspartate Amino Transferase 21 U/L (5-31); Bilirubin Direct < 0.2 mg/dL (0.0-0.5); Bilirubin Total 0.3 mg/dL (0.0-1.0); Magnesium 2.1 mg/dL (1.6-2.6)
[2020-11-01 20:39] LABS: Influenza A PCR NEGATIVE (Negative); Influenza B PCR NEGATIVE (Negative); Resp Syncy Virus RNA Qual PCR NEGATIVE (Negative); SARS COV2 PCR INHOUSE NEGATIVE (Negative)
[2020-11-01] MEDS: iohexoL 350 MG/ML 100 ML INFUS..BTL IV (20:51)
[2020-11-01 21:45] LABS: Glucose Urine UA NEG (NEG); Leukocyte Esterase Urine NEG (NEG); Nitrite Urine NEG (NEG); Specific Gravity - Urine 1.025 (1.005-1.025); UACC Culture Trigger NO; Urine Blood TRACE (NEG); Urine Ketones 5 MG/DL (NEG); Urine Protein NEG (NEG-TRACE)
[2020-11-01 21:46] LABS: Appearance Urine CLEAR; Color Urine YELLOW
[2020-11-01 21:47] LABS: UPreg QC Valid YES; Urine Pregnancy NEGATIVE (NEGATIVE)
[2020-11-01 21:54] LABS: Bacteria Urine 2+ /LPF; Mucus Urine 1+ /LPF; RBC Urine 0-2 /HPF (0); Squamous Epithelial Cell Urine TRACE /LPF
[2020-11-01 22:46] LABS: IDNOW Serial# 9DD0AD1C; Strep A Nucleic Acid Negative (Negative)
== END 2020-11-01 22:05 | disposition home or self-care (01) ==
PROVIDERS: Nurse Practitioner Family; Emergency Provider Emergency Medicine Emergency Medical Services
DX: R10.9 Unspecified abdominal pain (principal); R50.9 Fever, unspecified; J02.9 Acute pharyngitis, unspecified; Z20.822 Contact with and (suspected) exposure to COVID-19
CPT/HCPCS: 0241U; 36415; 74177; 80048; 80076; 81001; 81025; 83735; 85025; 87651; 99284; Q9967

== ENCOUNTER → 2020-11-30 13:36 | Outpatient (BNVA) | payer MEDICAID, SELFPAY | PROVIDERS: Visit Provider Physician Assistant | DX: D36.9 Benign neoplasm, unspecified site (principal); K57.30 Diverticulosis of large intestine without perforation or abscess without bleeding; K64.4 Residual hemorrhoidal skin tags | CPT/HCPCS: 99212 ==

== ENCOUNTER → 2021-01-11 13:27 | Outpatient (BNVA) | payer MEDICAID, SELFPAY | PROVIDERS: PCP Nurse Practitioner; Referring Provider Physician Assistant; Visit Provider Surgery | DX: K64.9 Unspecified hemorrhoids (principal) | CPT/HCPCS: 46600 ==

== ENCOUNTER 2021-11-10 15:01 | Outpatient (REF) | payer MEDICAID, SELFPAY ==
[2021-11-10 16:06] LABS: COVID-19 Test Positive (Negative); IDNOW Serial# 16C4AD1C
== END 2021-11-10 15:02 | disposition home or self-care (01) ==
LOC: HO.LAB 15:01
PROVIDERS: Visit Provider Internal Medicine
DX: Z20.822 Contact with and (suspected) exposure to COVID-19 (principal)
CPT/HCPCS: 87635; C9803

== ENCOUNTER 2022-08-28 11:41 | Outpatient (REF) | payer MEDICAID, SELFPAY ==
--- NOTE | ~2022-08-28 | MM_ITS ---
EXAMINATION: MM SCREENING DIGITAL BREAST TOMOSYNTHESIS, BILATERAL CLINICAL INFORMATION: Screening. Asymptomatic. The lifetime risk of breast cancer based on the Tyrer-Cuzick Model is 5%. COMPARISON: Mammography: 05/02/2016, 12/15/2012 TECHNIQUE: Digital breast tomosynthesis is performed in both the craniocaudal and mediolateral oblique views along with computer-aided detection (CAD). Synthesized 2D images are generated from the tomosynthesis. Additional bilateral CC and right MLO views are provided. FINDINGS: There are scattered areas of fibroglandular density (ACR BI-RADS breast composition Category b). There are no significant masses, abnormal calcifications, or other abnormalities. There are scattered bilateral minor stable asymmetries. No developing density or architectural abnormality or significant changes. No abnormal calcifications. The axilla and skin contours are unremarkable. MM/MM tomosynthesis screening BI IMPRESSION: No mammographic evidence of malignancy. ASSESSMENT: BI-RADS 2: Benign RECOMMENDATION: Routine annual mammography screening. This patient's information was entered into a reminder system with a target due date for their next mammogram.
== END 2022-08-28 11:42 | disposition home or self-care (01) ==
LOC: HO.MAMMO 11:41
PROVIDERS: PCP Registered Nurse; Visit Provider Registered Nurse
DX: Z12.31 Encounter for screening mammogram for malignant neoplasm of breast (principal)
CPT/HCPCS: 77063; 77067

== ENCOUNTER 2022-11-02 14:03 | Outpatient (AMB) | payer MEDICAID, SELFPAY ==
--- NOTE | 2022-11-02 11:23 | MHC.OFFVIS ---
Intake Intake Visit Reasons: LDCT SD Allergies No Known Allergies Allergy (Verified 10/31/20 18:15) HPI LDCT SD HPI Details Initial visit for this 52yo smoker with a 30PYH. Patient has been smoking since age 16 for 36 years at 1ppd. Now down to 3/4ppd. . Reports marijuana use few times a week. Denies second hand smoke exposure. Denies exposure to chemicals or substances like asbestos. . Denies known family history of lung cancer. Denies personal history of cancers. Denies chest CT in last year. . Denies recent travel outside the . Was in [facility] recently Denies recent respiratory illness or recent hospitalization for respiratory issues. Reports testing positive for COVID in past. Denies receiving COVID Vaccine. . Denies fever, chills, new/worsening cough, hemoptysis, hoarseness or dysphagia. Denies significant chest pain, significant dyspnea or unintentional weight loss. Patient Lung Cancer Screening Questionnaire reviewed with patient by provider. . Shared Decision Making Completed. Patient meets criteria. Discussed in detail with patient, the risk vs benefit of LDCT screening. Patient consents to proceed with scan. Discussed smoking cessation. PFSH Medical History (Updated 11/02/22 @ 14:12 by Coty Bains PA-C) Chronic constipation Depression HLD (hyperlipidemia) Increased BMI Nicotine dependence, cigarettes, uncomplicated Tubular adenoma of colon Surgical History (Updated 11/02/22 @ 14:07 by Coty Bains PA-C) History of History of colonoscopy History of left oophorectomy History of tubal ligation Social History (Updated 11/02/22 @ 14:12 by Coty Bains PA-C) Household Members Other:: Alone Alcohol intake: current Alcohol intake frequency: holidays/special occasions only Patient Tobacco Use Status: Current everyday Tobacco user Cigarettes Per Day: 15 Years Smoked: (onset 16yo, 1ppd x 36yrs, now 3/4ppd - 30pyh) Current occupational status: employed Assessment & Plan Assessment & Plan (1) Nicotine dependence, cigarettes, uncomplicated: Comment: (current smoker, onset 16yo, 1ppd x 36yrs, now 3/4ppd - 30pyh) Code(s): F17.210 - Nicotine dependence, cigarettes, uncomplicated Plan: - SDM visit completed today in office. - Patient meets criteria for LDCT for lung cancer screening purposes and is asymptomatic. - Smoking cessation counseling offered. Patients can always call [phone]. - Will arrange for a LDCT scan of the chest for screening purposes at [facility]. - Risks, benefits, and alternatives were discussed in detail and the patient agrees to proceed. - Risks discussed include but are not limited to: radiation exposure, anxiety during testing and while awaiting results, false negatives, false positives and possibility of additional intervention such as further imaging or surgical procedures for benign disease. - Benefits are obviously detection of lung cancer at an early stage which can lead to improved outcomes. - Discussed the importance of screening program compliance with adherence to yearly LDCT scan as scheduled - or sooner interval scans for personalized screening regimen. - Discussed follow up plan. Our office will send a letter discussing results and if needed set up phone call and office visit based on CT findings. - Patient educated on results categorization and the management decisions for suspicious findings potentially found on the screening LDCT scan. Any patient with a Lung RADS score of 3 or 4 will be reviewed by a multidisciplinary team at [facility] to form a plan of action in regards to scan findings. - If further work up is warranted for a suspicious lung finding this will be followed by the Lung Cancer Screening program in conjunction with the Thoracic Surgery Department at [facility]. - A copy of the office note and LDCT will be sent to the patient's PCP - as well as documentation on any associated further plans of care. - Incidental findings on LDCT are the PCP's responsibility. These findings are indicated with an S finding on the LDCT Assessment. A note discussing the findings will be sent to the PCP who is then responsible for further management. - All questions answered.? Coding Level of Care Code Lung Cancer Screening G0296 Diagnoses Nicotine dependence, cigarettes, uncomplicated F17.210
== END 2022-11-02 14:15 | disposition home or self-care (01) ==
PROVIDERS: PCP Registered Nurse; Visit Provider Physician Assistant Medical
DX: F17.210 Nicotine dependence, cigarettes, uncomplicated (principal)
CPT/HCPCS: G0296

== ENCOUNTER 2022-11-02 14:13 | Outpatient (REF) | payer MEDICAID, SELFPAY ==
--- NOTE | ~2022-11-02 | CT_ITS ---
EXAMINATION: CT CHEST SCREENING CLINICAL INFORMATION: Current smoker. 37 pack year history. COMPARISON: Normal pelvic CT scan from 2020 TECHNIQUE: Multidetector volumetric CT imaging of the chest is performed without contrast using low dose technique. Additional 2D coronal and sagittal reformatted images and axial 3D maximum intensity projection (MIP) images are generated on the CT workstation. This CT examination was performed using dose optimization techniques as appropriate, variously including the following: *Automated exposure control *Adjustment of mA and/or kV according to patient size (this includes techniques or standardized protocols for targeted exams where dose is matched to indication/reason for exam; i.e. extremities or head) *Use of iterative reconstruction technique DLP: 77 mGy-cm FINDINGS: LUNGS: Emphysema. There are adjacent peripheral or subpleural areas of increased attenuation and more inferiorly increased linear markings questionable for atelectasis or scarring in the peripheral or subpleural anterior lateral right upper lobe for example axial image 249 series 5 measuring 1 cm in short axis and denser area with linear scarring or subsegmental atelectasis measuring 8 mm in axial dimensions axial image 286 series 5. The lungs are otherwise clear. No endobronchial or endotracheal lesion. MEDIASTINUM: The mediastinum is normal. CORONARY ARTERY CALCIFICATION: None visualized on this study. PLEURA: There is no pleural effusion. No pleural mass or thickening. AXILLA: No lymphadenopathy. UPPER ABDOMEN: 1.8 x 2.8 cm low-attenuation left adrenal lesion probably representing a benign lipid rich adenoma. There may be a small 1 cm similar appearing right adrenal nodule. These are similar-appearing to October [address] scan. No imaging follow-up recommended. OSSEOUS STRUCTURES: Unremarkable. CT/CT lung screening IMPRESSION: Emphysema. Abnormal parenchymal densities in the peripheral or subpleural right lower lobe. Largest area measures 1 cm in short axis. ASSESSMENT: Lung-RADS category 3: Probably Benign RECOMMENDATION: Six-month low-dose chest CT follow-up recommended.
== END 2022-11-02 14:14 | disposition home or self-care (01) ==
LOC: HO.CT 14:13
PROVIDERS: PCP Registered Nurse; Visit Provider Physician Assistant Medical
DX: Z12.2 Encounter for screening for malignant neoplasm of respiratory organs (principal); F17.210 Nicotine dependence, cigarettes, uncomplicated
CPT/HCPCS: 71271; G0296

== ENCOUNTER 2023-02-07 14:31 | Outpatient (REF) | payer MEDICAID, SELFPAY ==
--- NOTE | ~2023-02-07 | CT_ITS ---
EXAMINATION: CT CHEST SCREENING CLINICAL INFORMATION: Current smoker with 35 pack-year history. Follow-up right lower lobe density seen on 11/02/2022 COMPARISON: None available. TECHNIQUE: Multidetector volumetric CT imaging of the chest is performed without contrast using low dose technique. Additional 2D coronal and sagittal reformatted images and axial 3D maximum intensity projection (MIP) images are generated on the CT workstation. This CT examination was performed using dose optimization techniques as appropriate, variously including the following: *Automated exposure control *Adjustment of mA and/or kV according to patient size (this includes techniques or standardized protocols for targeted exams where dose is matched to indication/reason for exam; i.e. extremities or head) *Use of iterative reconstruction technique DLP: 276 mGy-cm FINDINGS: TOOLING ENGINEER: Unremarkable LUNGS: Trachea and bronchi are patent. Evaluation of lung taylor limited by body habitus. Right upper lobe peripheral opacity seen on previous study no longer identified. Barely perceptible 1 cm subpleural right lower lobe opacity seen on 5:237 previously measured 1.2 cm on 11/02/2022. Regional atelectasis has also improved. MEDIASTINUM: No thyroid nodules. No pathologic lymphadenopathy. Nonenlarged heart. No pericardial effusion. Nonaneurysmal aorta. Nonenlarged pulmonary arteries. CORONARY ARTERY CALCIFICATION: None visualized on this study. PLEURA: There is no pleural effusion. No pleural mass or thickening. AXILLA: No lymphadenopathy. UPPER ABDOMEN: 1.9 cm right and 2.5 cm left enlarged adrenal glands with the fat density Hounsfield units consistent with lipid rich adenomas. Possible too small to characterize medial left upper pole renal lesion. Unchanged 1.4 cm left hepatic cyst. OSSEOUS STRUCTURES: No suspicious osseous lesions. CT/CT lung screen follow up IMPRESSION: Resolution right upper lobe peripheral opacity, and near-total resolution right lower lobe peripheral opacity, likely atelectasis versus infectious etiology. Stable lipid rich adrenal adenomas. Stable hepatic cyst. Question left renal cyst. ASSESSMENT: Lung-RADS category 1S: Negative RECOMMENDATION: Routine annual low-dose CT screening in 12 months. Consider renal ultrasound for left upper pole renal hypodensity, possible cyst.
== END 2023-02-07 14:32 | disposition home or self-care (01) ==
LOC: HO.CT 14:31
PROVIDERS: PCP Registered Nurse; Visit Provider Physician Assistant Medical
DX: Z12.2 Encounter for screening for malignant neoplasm of respiratory organs (principal); F17.210 Nicotine dependence, cigarettes, uncomplicated; R91.1 Solitary pulmonary nodule
CPT/HCPCS: 71250

== ENCOUNTER 2023-07-03 10:40 | Outpatient (REF) | payer MEDICAID, SELFPAY ==
[2023-07-03 14:35] LABS: Alanine Aminotransferase 17 U/L (0-31); Albumin Level 4.4 g/dL (3.5-5.0); Alkaline Phosphatase 117 U/L (39-117); Anion Gap 14 (12-20); Aspartate Amino Transferase 16 U/L (5-31); Bilirubin Total 0.3 mg/dL (0.0-1.0); Blood Urea Nitrogen 13 mg/dL (9-16); Calcium 9.5 mg/dL (8.4-10.2); Carbon Dioxide 28 mmol/L (22-29); Chloride 104 mmol/L (96-108); Estimated Glomerular Filt Rate > 60; Glucose Random 96 mg/dL (60-115); Potassium 4.5 mmol/L (3.3-5.1); Sodium 141 mmol/L (135-145)
[2023-07-03 14:38] LABS: Thyroid Stimulating Hormone 1.08 uIU/mL (0.32-4.0)
== END 2023-07-03 10:41 | disposition home or self-care (01) ==
LOC: HO.HHCL 10:40
PROVIDERS: Visit Provider Registered Nurse
DX: E66.01 Morbid (severe) obesity due to excess calories (principal); Z68.41 Body mass index [BMI] 40.0-44.9, adult
CPT/HCPCS: 36415; 80053; 84443

== ENCOUNTER 2023-08-30 11:14 | Outpatient (REF) | payer OTHER, SELFPAY ==
[2023-08-30 13:17] LABS: Cholesterol 219 mg/dL (<200); HDL Cholesterol 38 mg/dL (>40); LDL Cholesterol Calculated 154 mg/dL (<100); Triglycerides 139 mg/dL (<150)
== END 2023-08-30 11:15 | disposition home or self-care (01) ==
LOC: HO.HHCL 11:14
PROVIDERS: Visit Provider Registered Nurse
DX: E78.2 Mixed hyperlipidemia (principal)
CPT/HCPCS: 36415; 80061

== ENCOUNTER 2023-10-28 13:57 | Outpatient (REF) | payer OTHER, SELFPAY ==
--- NOTE | ~2023-10-28 | US_ITS ---
EXAMINATION: US RETROPERITONEAL LIMITED (RENAL ONLY) CLINICAL INFORMATION: Left renal mass. COMPARISON: CT lung screening 02/07/2023. CT abdomen and pelvis 11/01/2020. TECHNIQUE: Real-time imaging of the kidneys. Limited visualization due to bowel gas and body habitus. FINDINGS: RIGHT KIDNEY: 11.3 x 5.0 x 5.7 cm (SAG x AP x TRV). No hydronephrosis. No renal calculi. Renal cortical thickness is normal. Limited visualization. Echogenic foci characteristic of right renal cortical calcifications. LEFT KIDNEY: 11.1 x 5.2 x 4.6 cm (SAG x AP x TRV). No hydronephrosis. No renal calculi. Renal cortical thickness is normal. Limited visualization. 1.2 cm mid pole cyst with benign features. There is no indication for follow-up imaging. US/US renal BI IMPRESSION: 1. Right renal cortical calcifications. No hydronephrosis. 2. Left renal 1.2 cm mid pole cyst with benign features. There is no indication for follow-up imaging. 3. Limited visualization due to bowel gas and body habitus.
== END 2023-10-28 13:58 | disposition home or self-care (01) ==
LOC: HO.US 13:57
PROVIDERS: PCP Registered Nurse; Visit Provider Registered Nurse
DX: N28.89 Other specified disorders of kidney and ureter (principal); N28.1 Cyst of kidney, acquired
CPT/HCPCS: 76775

== ENCOUNTER 2023-12-09 16:36 | Outpatient (REF) | payer OTHER, SELFPAY ==
--- NOTE | ~2023-12-09 | MR_ITS ---
EXAMINATION: MR BRAIN WITHOUT CONTRAST CLINICAL INFORMATION: worsening tremors COMPARISON: None TECHNIQUE: Multiplanar multisequence MR imaging of the brain was obtained without intravenous contrast. FINDINGS: There is no acute infarct on diffusion-weighted imaging. There is no intracranial hemorrhage on iron-sensitive imaging. No extra-axial collection or mass effect/herniation. There are several scattered foci of nonspecific supratentorial white matter T2/FLAIR signal abnormality. No hydrocephalus. The ventricles are normal in morphology and size. The major flow voids at the skull base are preserved. The midline structures are normal. The cerebellar tonsils are normally positioned. The craniocervical junction is normal. Marrow signal is within normal limits. The visualized soft tissues are without significant abnormality. No signal abnormality within the paranasal sinuses or within the mastoid air cells. MR/MR head/brain wo con IMPRESSION: Unremarkable noncontrast MRI of the brain. Electronically signed by: Silvestre Kelly MD 12/31/2023 01:45 AM EDT
== END 2023-12-09 16:37 | disposition home or self-care (01) ==
LOC: HO.MRI 16:36
PROVIDERS: PCP Registered Nurse; Visit Provider Registered Nurse
DX: R25.1 Tremor, unspecified (principal)
CPT/HCPCS: 70551

== ENCOUNTER 2024-07-03 09:51 | Outpatient (REF) | payer OTHER, SELFPAY ==
--- OUTSIDE RECORDS SUMMARY | 2024-07-03 10:28 | XMS_ITS | Encounter Summary ---
Author Organization [facility] Address [address] [place] [address] [address], [place] [address] Care Team Providers Care Associate Civil Engineer Name Role Phone Shannan Jorge Primary Care Provider [phone] Encounter Details Date Type Department Care Team (Latest Contact Info) Description 11/22/2020 Abstract [facility] CONVERSIONS Dental, Provider, DDS Social History Tobacco Use Types Packs/Day Years Used Date Smoking Tobacco: Never Assessed Comments Unknown Sex and Gender Information Value Date Recorded Sex Assigned at Female 01/22/2022 10:16 AM EDT Legal Sex Female 10:16 AM EDT Gender Identity Female 01/22/2022 10:16 AM EDT Sexual Orientation Straight 01/22/2022 10 :16 AM EDT documented as of this encounter Plan of Treatment Upcoming Encounters Date Type Department Care Team (Late st Contact Info) Description 07/22/2024 10:00 AM EDT Clinical Support [facility] [address] [place] [phone] 10/05/2024 10:30 AM EDT Office Visit [facility] [address] [place] [phone] Shannan Jorge FNP [address] [place] [address] documented as of this encounter Visit Diagnoses Not on filedocumented in this encounter Care Teams Associate Civil Engineer Relationship Specialty Start Date End Date Shannan Jorge FNP [address] [place] [phone] PCP - General Family Medicine 11/17/21 documented as of this encounter
--- OUTSIDE RECORDS SUMMARY | 2024-07-03 10:28 | XMS_ITS | Encounter Summary ---
Author Organization [employer] Address [address] [facility] 7 [place] [address] Care Team Providers Care Commercial Production Editor Name Role Phone [place] [facility] Primary Care Provider [phone] Reason for Visit * Reason Onset Date Comments chart prep 07/02/2024 Encounter Details Date Type Department Care Team ([facility] Contact Info) Description 07/02/2024 Telephone [facility] [address] [place] [address] [place] [facility] [address] [place] [address] chart prep Social History Tobacco Use Types Packs/Day Years Used Date Smoking Tobacco: Every Day Cigarettes Smokeless Tobacco: Never Alcohol Use Standard Drinks/Week Comments Never 0 (1 standard drink = 0.6 oz pur e alcohol) Depression Answer Date Recorded Patient Health Questionnaire-9 Score 0 07/03/2024 Patient Health Questionnaire-9 Score 0 07/03/2024 Last PHQ-9: Questionnaire Data Not on file 0 07/03/2024 Housing Stability Answer Date Recorded What is your housing situation today? I have lisbet oquendo 08/30/[address] you li ve. Do you have problems with any of the following? None of the above 08/30/2023 Food Insecurity Answer Date Recorded Within the past 12 months, y ou worried that your food would run out before you got money to buy more: Never True 08/30/2023 Within the past 12 months,th e food you bought just didn't last and you didn't have enough money to get more: Never True 09/2023 Transportation Answer Date Recorded In the past 12 months, has l ack of transportation kept you from medical appts, meetings, work or from getting things needed for daily living? No 08/30/2023 Utilities Answer Date Recorded In the past 12 months, has t he electric, gas, oil or water company threatened to shut off services in your home? No 08/30/2023 Depression Answer Date Recorded Patient Health Questionnaire-2 Score 0 07/03/2024 Comments Unknown Sex and Gender Information Value Date Recorded Sex Assigned at Female 01/22/2022 10:16 AM EDT Legal Sex Female 10:16 AM EDT Gender Identity Female 01/22/2022 10:16 AM EDT Sexual Orientation Straight 01/22/2022 10 :16 AM EDT documented as of this encounter Miscellaneous Notes * Telephone Encounter - Eva Hernandez MA - 07/02/2024 10:30 AM EDT Chart Prep Labs: not done Images: done Referrals: complete Vaccines due: yes Screenings: colonoscopy, mammogram, and pap smear Overdue care gaps: PHQ-9 and LORI-7 documented in this encounter Plan of Treatment Upcoming Encounters Date Type Department Care Team (Late st Contact Info) Description 07/22/2024 10:00 AM EDT Clinical Support [facility] [address] [place] [phone] 10/05/2024 10:30 AM EDT Office Visit [facility] [address] [place] [phone] Shannan Jorge FNP [address] [place] [phone] documented as of this encounter Visit Diagnoses Not on filedocumented in this encounter Additional Health Concerns Assessment Noted Time PHQ-9 Depression Total Score: 0 08/30/19 24 10:08 AM EDT documented as of this encounter Care Teams Commercial Production Editor Relationship Specialty Start Date End Date Shannan Jorge FNP [address] [place] [phone] PCP - General Family Medicine 11/17/21 documented as of this encounter
--- OUTSIDE RECORDS SUMMARY | 2024-07-03 10:28 | XMS_ITS | Clinical Summary ---
Author Organization [employer] Address [address] [place] [address] [address] [place] [address] Care Team Providers Care Elementary Education Teacher Name Role Phone [facility] Primary Care Provider [phone] Allergies No known active allergies Medications benzoyl peroxide cleanser (Benzac AC) 2.5 % liquid topical wash Apply topically 1 (one) time each day. 08/07/19 21 Active ketoconazole (Nizoral) 2 % shampooIndication s:Seborrheic dermatitis Apply topically 2 (two) times a week. 120 mL 1 04/30/19 23 Active naltrexone-buPROP ion ER (Contrave) 8-90 MG ER tabletIndications :Class 3 severe obesity due to excess calories with serious comorbidity and body mass index (BMI) of 40.0 to 44.9 in adult (CMS/[facility]),Encount er for smoking cessation counseling Take 1 tablet by oral route daily 30 tablet 2 09/18/19 23 Active FLUoxetine (PROzac) 20 MG capsuleIndication s:Depressive disorder Take 1 capsule (20 mg) by mouth in the morning. 90 capsule 3 07/03/19 24 Active hydrOXYzine HCl (Atarax) 25 MG tabletIndications :Depressive disorder Take 1 tablet (25 mg) by mouth if needed at bedtime for anxiety. 120 tablet 1 07/03/19 24 Active rosuvastatin (Crestor) 10 MG tabletIndications :Mixed hyperlipidemia Take 1 tablet (10 mg) by mouth in the morning. 30 tablet 11 07/03/19 24 Active Clobetasol Propionate 0.05 % shampooIndication s:Scalp psoriasis Use daily on scalp 118 mL 11 08/30/19 Active Blood Pressure kitIndications:Pr imary hypertension Use as directed 1 kit 08/30/19 Active cetirizine (ZyrTEC) 10 MG tabletIndications :Seasonal allergies Take 1 tablet (10 mg) by mouth Once per day. 30 tablet 5 08/30/19 Active rosuvastatin (Crestor) 20 MG tablet Take 1 tablet (20 mg) by mouth Once per day. 30 tablet 11 09/16/19 24 2024 Active hydroCHLOROthiazi de 12.5 MG tabletIndications :Primary hypertension Take 1 tablet (12.5 mg) by mouth Once per day. 90 tablet 3 07/04/19 25 2025 Active olmesartan (BENIcar) 5 MG tabletIndications :Primary hypertension TAKE 1 TABLET(5 MG) BY MOUTH IN THE MORNING 180 tablet 07/04/19 Active ibuprofen 600 MG tabletIndications :Chronic right shoulder pain Take 1 tablet (600 mg) by mouth every 6 (six) hours if needed for mild pain. 30 tablet 1 07/04/19 25 2024 Active cyclobenzaprine (Flexeril) 5 MG tabletIndications :Chronic right shoulder pain Take 1 tablet (5 mg) by mouth 3 times daily for 10 days. 30 tablet 07/04/19 25 2024 Active triamcinolone (Kenalog) 0.1 % ointmentIndicatio ns:Psoriasis Apply topically 2 times daily. 30 g 1 07/04/19 Active olmesartan (BENIcar) 5 MG tabletIndications :Primary hypertension TAKE 1 TABLET(5 MG) BY MOUTH IN THE MORNING 180 tablet 07/03/19 24 2024 Discontinued(R eorder (will not trigger notification to Pharmacy)) hydroCHLOROthiazi de (HYDRODiuril) 12.5 MG tabletIndications :Primary hypertension Take 1 tablet (12.5 mg) by mouth in the morning. 90 tablet 3 07/03/19 24 2024 Discontinued(R eorder (will not trigger notification to Pharmacy)) Active Problems Problem Noted Date Diagnosed Date Healthcare maintenance 08/18/2022 Overview (06/11/2023): Mammo: Ordered 06/2022 Pap: Hx unknown. Will schedule today C-scope: 2020, polyps. Repeat 3 years. BMD: Routine age 66 Lung cancer screening: [facility] 01/2023 Primary hypertension 06/20/2022 Overview (08/18/2022): ?? Olmesartan 5mg daily ?? Hydrochlorothiazide 12.5mg Maintenance: BMP: Pending Lipid Panel: Pending ASCVD Risk: Calculate pending updated labs EKG: Obtain baseline at f/u - Aerobic exercise to reduce BP. Initial goal of 30 min walk 3-5x/week. Increase as tolerated. - low-sodium diet (goal: <2g/day) and heart healthy diet such as DASH to reduce BP and prevent ASCVD. - Home BP monitoring 1-2 x day with goal of <140/90. - Seek immediate medical attention for chest pain, palpitations, SOB, syncope, or sudden changes in mental status. - Do not change or discontinue current prescriptions without first consulting health care provider Assessment & Plan (08/18/2022 10:37 PM EDT): ?? Continue current regimen ?? Complete previously ordered labs Adenomatous polyp of colon 12/09/2020 Hyperlipidemia 08/11/2020 Vitamin D deficiency 08/11/2020 Psoriasis 11/13/2011 Overview (08/18/2022): ?? Followed by [facility] derm Depressive disorder 10/22/2011 Overview (09/17/2022): ?? Fluoxetine 20mg daily ?? No current therapy Assessment & Plan (08/18/2022 10:36 PM EDT): ?? Continue current regimen ?? Patient will reschedule initial session with Ramesh Tobacco dependence syndrome 09/20/2011 Overview (06/11/2023): 1/2 PPD since age 17 35 pack year smoking hx. Followed by [facility] LDLCT screening program. Last imaging 02/07/23 with Lung-RADS category 1S. Assessment & Plan (08/18/2022 10:26 PM EDT): ?? Declines cessation at this time ?? Accepts referral to LDLCT screening Resolved Problems Problem Noted Date Diagnosed Date Resolved Date Hemorrhoids 02/13/2021 08/18/2022 Candidal intertrigo 11/28/2016 08/19/19 Carpal tunnel syndrome 10/22/201108/18 Encounters Date Type Department Care Team Description 07/03/2024 9:15 AM EDT Office Visit [facility] MEDICINE [address] [place] [address] [facility] Chronic right shoulder pain (Primary Dx); Dietary counseling; Exercise counseling; Class 3 severe obesity due to excess calories with serious comorbidity and body mass index (BMI) of 40.0 to 44.9 in adult (CMS/[facility]); Primary hypertension; Psoriasis 07/03/2024 Travel 07/02/2024 Telephone [facility] MEDICINE [address] [place] [address] [facility] chart prep 06/26/2024 Patient Outreach [facility] MED & PEDS [address] [place], [place] [id number] [facility] Pre-visit Planning ([facility] unable to reach [facility]) from Last 3 Months Immunizations Name Administration Dates Next Due Influenza, IIV3, injectable 02/13/2010 Pneumococcal Conjugate PCV 20 08/30/2023 Tdap 12/06/2020 Family History Medical History Relation Name Comments Diabetes type II Mother Hypertension Mother Stroke Mother Colon cancer Mother's Brother Thyroid disease Sister Breast cancer Neg Hx Relation Name Status Comments Mother Mother's Brother Sister Social History Tobacco Use Types Packs/Day Years Used Date Smoking Tobacco: Every Day Cigarettes Passive Smoke Exposure: Current Smokeless Tobacco: Never Tobacco Cessation:Ready to Q uit: Not Asked; Counseling Given: Not Answered Alcohol Use Standard Drinks/Week Comments Never 0 [...] Orientation Straight 01/22/2022 10 :16 AM EDT Last Filed Vital Signs Vital Sign Reading Time Taken Comments Blood Pressure 162/98 07/03/2024 9:23 AM EDT n m eds Pulse 104 07/03/2024 9:23 AM EDT Temperature 36.4 ??C (97.5 ??F) 07/03/2024 9:23 AM ED T Respiratory Rate 20 07/03/2024 9:23 AM EDT Oxygen Saturation 98% 07/03/2023 9:50 AM EDT Inhaled Oxygen Concentration - - Weight 108 kg (237 lb 3.2 oz) 07/03/2024 9:23 AM EDT Height 157.5 cm (5' 2 ) 07/03/2024 9:23 AM EDT Body Mass Index 43.38 07/03/2024 9:23 AM EDT Plan of Treatment Upcoming Encounters Date Type Department Care Team (Late st Contact Info) Description 07/22/2024 10:00 AM EDT Clinical Support [facility] MEDICINE [address] [place] [address] 10/05/2024 10:30 AM EDT Office Visit [facility] MEDICINE [address] [place] [phone] [place], Shannan, CURB ATTENDANT [address] [place] [address] Health Maintenance Due Date Last Done Comments CT Colonography 1971 FIT DNA/Cologuard 1971 FIT 1971 FOBT 1970 Sigmoidoscopy 1971 Family Planning (PISQ) 07/15/1986 Hepatitis B Vaccines (1 of 3 - 19+ 3-dose series) 07/15/1990 Pap Smear 07/15/1992 Cervical Cancer Screening 07/15/2001 HPV/Cotest 07/15/2001 Zoster Vaccines (1 of 2) 07/15/2021 Colonoscopy 03/25/2023 03/25/2020 Colorectal Cancer Screening 03/25/2023 Mammogram 08/29/2023 08/28/2022, 08/28/2022 COVID-19 Vaccine (1 - 2023-2 5 season) 2023 Influenza Vaccine (#1) 2023 02/13/2010 Alcohol/Substance Use Screening 08/29/2024 08/30/2023 SDOH Screening 08/29/2024 08/30/2023 Depression Screening 07/03/2025 07/03/2024, 07/03/2024 Tobacco Screening 07/03/2025 07/03/2024 Lipid Panel 08/29/2028 08/30/2023, 08/08/2022, 08/05/2020 DTaP/Tdap/Td Vaccines (2 - T d or Tdap) 12/06/2030 12/06/2020 RSV Patients and Patients Aged 60 years or older (1 - 1-dose 75+ series) 07/15/2046 HIV Screening Completed 08/08/2022 Hepatitis C Screening Completed 08/08/2022 Pneumococcal Vaccine: 50+ Years Completed 08/30/2023 HIB Vaccines Aged Out No longer eligi ble based on patient's age to complete this topic HPV Vaccines Aged Out No longer eligi ble based on patient's age to complete this topic Hepatitis A Vaccines Aged Out No long er eligible based on patient's age to complete this topic IPV Vaccines Aged Out No longer eligi ble based on patient's age to complete this topic Meningococcal Vaccine Aged Out No brett ellen eligible based on patient's age to complete this topic RSV under 20 months Aged Out No longe r eligible based on patient's age to complete this topic Rotavirus Vaccines Aged Out No longer eligible based on patient's age to complete this topic Procedures Procedure Name Priority Date/Time Associated Diagnosis Comments LIPID PANEL, STANDARD Routine 08/30/2023 11:15 AM EDT Mixed hyperlipidemia BI MAMMOGRAM SCREENING TOMOSYNTHESIS BILATERAL Routine 08/28/2022 12:05 PM EDT HEPATITIS C AB W/REFL TO HCV RNA, QN, PCR Routine 08/08/2022 10:53 AM EDT Healthcare maintenance HIV 1/2 ANTIGEN/ANTIBODY, FOURTH GENERATION W/RFL Routine 08/08/2022 10:53 AM EDT Healthcare maintenance HM COLONOSCOPY Routine 03/25/2020 10:43 PM EST from Last 3 Months or Most Recently Relevant to Health Maintenance Results * (ABNORMAL) Lipid Panel, Standard (08/30/2023 11:15 AM EDT) Triglycerides 139 <150 mg/dL [facility] Comment:Desirable Triglyceri de: less than 150 mg/dLBorderline High Triglyceride 150-199 mg/dLHigh Triglyceride: 200-499 mg/dLVery High Triglyceride: greater than or equal to 5OO mg/dL Cholesterol 219(H) <200 mg/dL [facility] Comment:Desirable Cholestero l: less than 200 mg/dLBorderline High Cholesterol: 200-239 mg/dLHigh Cholesterol: greater than 239 mg/dL LDL Cholesterol Calculated 154(H) <100 mg/dL [facility] Comment:Desirable LDL: less than 100 mg/dLNear Optimal/Above Optimal LDL: 110- 129 mg/dLBorderline High LDL: 130-159 mg/dLHigh LDL: 160-189 mg/dLVery High LDL: greater than or equal to 190 mg/dL HDL Cholesterol 38(L) >40 mg/dL [facility] Comment:Desirable HDL: great er than 40 mg/dL Note: This HDL assay may give artificially low results in patients with liver disease. Blood Venous blood specimen / Unknown 08/30/2023 11:15 AM EDT 08/30/2023 1:01 PM EDT [facility] CURB ATTENDANT LAB BLOOD ORDERABLES Final Re sult [facility] [address] [place] [phone] * BI Mammogram Screening Tomosynthesis Bilateral (08/28/2022 12:05 PM EDT) Anatomical Region Laterality Modality Breast Bilateral Mammography 08/28/2022 12:0 5 PM EDT Narrative 08/31/2022 9:22 AM EDT ? [facility] ? [address] ?[place] [address] ? Mammography Report ? Signed ? Patient: Ramirez,Ivana ?MR#: [id number] ?? 60 ? : 1970 ?Acct:[id number] ? Age/Sex: 52 / F ?ADM Date: 08/28/ ? Loc: HO.MAMMO ? Attending Dr: Shannan Ania CURB ATTENDANT ? Ordering Physician: [place],Shannan CURB ATTENDANT ?Results: 2Beni ?? gn Findings ? Date of Service: 08/28/ ?Follow Up: 1 Year From Orig ?? inal Mammogram ? Procedure(s): MM tomosynthesis screening BI ?? Accession Number(s): [id number] ? cc: Ania,Shannan CURB ATTENDANT ? EXAMINATION: ?? MM SCREENING DIGITAL BREAST TOMOSYNTHESIS, BILATERAL ? CLINICAL INFORMATION: ? Screening. Asymptomatic. ? The lifetime risk of breast cancer based on the Tyrer-Cuzick Model is ?? 5%. ? COMPARISON: ?? Mammography: 05/02/2016, 12/15/2012 ? TECHNIQUE: ?? Digital breast tomosynthesis is performed in both the craniocaudal and ?? mediolateral oblique views along with computer-aided detection (CAD). ?? Synthesized 2D images are generated from the tomosynthesis. ??Additional ?? bilateral CC and right MLO views are provided. ? FINDINGS: ?? There are scattered areas of fibroglandular density (ACR BI-RADS breast ?? composition Category b). ? There are no significant masses, abnormal calcifications, or other ?? abnormalities. ?? There are scattered bilateral minor stable ?? asymmetries. No developing density or architectural abnormality or ?? significant changes. No abnormal calcifications. The axilla and skin ?? contours are unremarkable. ? MM/MM tomosynthesis screening BI ?? IMPRESSION: ?? No mammographic evidence of malignancy. ? ASSESSMENT: ? BI-RADS 2: Benign ? RECOMMENDATION: ?? Routine annual mammography screening. ? This patient's information was entered into a reminder system with a ?? target due date for their next mammogram. ? Dictated By: ?Jj Milner MD ? Signed By: ?<Electronically signed by Jj Milner MD in OV> ?08/31/22 0919 ? DD/ 1205 ? TD/TT: ? Pension Examiner: ALCAZAR ? Procedure Note Lupe, Becca - 09/20/2022 [place] [facility] [address] [place] [address] Mammography Report Signed Patient: Delano RamirezCharlotte#: [id number] 60 : 1970Acct:[id number] Age/Sex: 52 / FADM Date: 08/28/22 Loc: HO.MAMMO Attending Dr: Shannan Jorge CURB ATTENDANT Ordering Physician: Shannan Jorge FNPResults: 2Beni gn Findings Date of Service: 08/28/22Follow Up: 1 Year From Orig inal Mammogram Procedure(s): MM tomosynthesis screening BI Accession Number(s): [id number] cc: Shannan Jorge CURB ATTENDANT EXAMINATION: MM SCREENING DIGITAL BREAST TOMOSYNTHESIS, BILATERAL CLINICAL INFORMATION: Screening. Asymptomatic. The lifetime risk of breast cancer based on the Tyrer-Cuzick Model is 5%. COMPARISON: Mammography: 05/02/2016, 12/15/2012 TECHNIQUE: Digital breast tomosynthesis is performed in both the craniocaudal and mediolateral oblique views along with computer-aided detection (CAD). Synthesized 2D images are generated from the tomosynthesis. Additional bilateral CC and right MLO views are provided. FINDINGS: There are scattered areas of fibroglandular density (ACR BI-RADS breast composition Category b). There are no significant masses, abnormal calcifications, or other abnormalities. There are scattered bilateral minor stable asymmetries. No developing density or architectural abnormality or significant changes. No abnormal calcifications. The axilla and skin contours are unremarkable. MM/MM tomosynthesis screening BI IMPRESSION: No mammographic evidence of malignancy. ASSESSMENT: BI-RADS 2: Benign RECOMMENDATION: Routine annual mammography screening. This patient's information was entered into a reminder system with a target due date for their next mammogram. Dictated By: Jj Milner MD Signed By: <Electronically signed by Jj Milner MD in OV> 08/31/22 0919 DD/ 1205 TD/TT: Pension Examiner: ALCAZAR [facility] External Provider IMG BI PROCEDURES Final Result * Hepatitis C Antibody with Reflex to HCV, RNA, Quantitative, Real-Time PCR (08/08/2022 10:53 AM EDT) Hepatitis C Antibody NON-REACT CHASE NON-REACT CHASE [facility] Index 0.12 <1.00 [facility] Comment: HCV antibody was non-reactive. There is no laboratory evidence of HCV infection. In most cases, no further action is required. However, if recent HCV exposure is suspected, a test for HCV RNA (test code 37656) is suggested. For additional information please refer to http://[employer].Shareight/faq/XZB17m6 (This link is being provided for informational/ educational purposes only.) Blood Venous blood specimen / Unknown 08/08/2022 10:53 AM EDT 08/08/2022 10:53 AM EDT Narrative [facility] - 08/10/2022 4:35 PM EDT FASTING:YES FASTING: YES [facility] LAB BLOOD ORDERABLES Final Re sult [facility] [address], [place] [address] [facility] [address] [place] [address] * HIV-1/2 Antigen and Antibodies, Fourth Generation, with Reflexes (08/08/2022 10:53 AM EDT) HIV Antigen/Antibody, 4th Generation NON-REAC TIVE NON-REAC TIVE [facility] Comment: HIV-1 antigen and HIV-1/HIV-2 antibodies were not detected. There is no laboratory evidence of HIV infection. PLEASE NOTE: This information has been disclosed to you from records whose confidentiality may be protected by state law. ??If your state requires such protection, then the state law prohibits you from making any further disclosure of the information without the specific written consent of the person to whom it pertains, or as otherwise permitted by law. A general authorization for the release of medical or other information is NOT sufficient for this purpose. ?? For additional information please refer to http://[employer].Shareight/faq/YXQ825 (This link is being provided for informational/ educational purposes only.) The performance of this assay has not been clinically validated in patients less than 2 years old. Blood Venous blood specimen / Unknown 08/08/2022 10:53 AM EDT 08/08/2022 10:53 AM EDT Narrative [facility] - 08/10/2022 4:35 PM EDT FASTING:YES FASTING: YES [facility] CURB ATTENDANT LAB BLOOD ORDERABLES Final Re sult [facility] [address] [facility], [place] [address] [facility] [address] [place] [address] * (ABNORMAL) Colonoscopy (03/25/2020 10:43 PM EST) Colonoscopy Abnormal( A) Normal Comment:Polyps. Repeat 3 yea rs Historical Provider MD HEALTH MAINTENANCE Final Result from Last 3 Months or Most Recently Relevant to Health Maintenance Insurance [facility] Care Teams Elementary Education Teacher Relationship Specialty Start Date End Date [place]Shann[place] FNP [address] [place] [phone] PCP - General Family Medicine 11/17/21
--- OUTSIDE RECORDS SUMMARY | 2024-07-03 10:28 | XMS_ITS | Encounter Summary ---
Author Organization [employer] Address [address] [facility] [address]t [place] [address] Care Team Providers Care Out Of Town Collection Clerk Name Role Phone Shannan Jorge [facility] Primary Care Provider [phone] Encounter Details Date Type Department Care Team (Latest Contact Info) Description 07/03/2024 Travel Social History Tobacco Use Types Packs/Day Years Used Date Smoking Tobacco: Every Day Cigarettes Passive Smoke Exposure: Current Smokeless Tobacco: Never Alcohol Use Standard Drinks/Week [...] Description 07/22/2024 10:00 AM EDT Clinical Support [facility] MEDICINE [address] [place] [address] 10/05/2024 10:30 AM EDT Office Visit [address] [address] Shannan Jorge FNP [address] [place] [phone] documented as of this encounter Visit Diagnoses Not on filedocumented in this encounter Additional Health Concerns Assessment Noted Time PHQ-9 Depression Total Score: 0 07/04/19 25 9:24 AM EDT documented as of this encounter Care Teams Out Of Town Collection Clerk Relationship Specialty Start Date End Date Shannan Jorge FNP [address] [place] [address] PCP - General Family Medicine 11/17/21 documented as of this encounter
--- OUTSIDE RECORDS SUMMARY | 2024-07-03 10:28 | XMS_ITS | Encounter Summary ---
Author Organization [employer] Address [address] [place] [address] [address] [place] [address] Care Team Providers Care Beam House Inspector Name Role Phone [facility] Primary Care Provider [phone] Reason for Visit * Reason Onset Date Comments cancelled appt 11/13/2022 Encounter Details Date Type Department Care Team ([facility] st Contact Info) Description 11/13/2022 Telephone [facility] MEDICINE [address] [place] [address] [facility] [address] [place] [address] cancelled appt Social History Tobacco Use Types Packs/Day Years Used Date Smoking Tobacco: Every Day Cigarettes Smokeless Tobacco: Never Alcohol Use Standard Drinks/Week Comments Never 0 (1 standard drink = 0.6 oz pur e alcohol) Depression Answer Date Recorded Patient Health Questionnaire-9 Score 0 08/08/2022 Depression Answer Date Recorded Patient Health Questionnaire-2 Score 0 08/08/2022 Comments Unknown Sex and Gender Information Value Date Recorded Sex Assigned at Female 01/22/2022 10:16 AM EDT Legal Sex Female 10:16 AM EDT Gender Identity Female 01/22/2022 10:16 AM EDT Sexual Orientation Straight 01/22/2022 10 :16 AM EDT documented as of this encounter Miscellaneous Notes * Telephone Encounter - Violetta Griffithnez - 11/13/2022 11:13 AM EDT Tc from patient calling to cancel PAP appt from 11/13/22 due to a family emergency. Details: 3 months PAP with me documented in this encounter Plan of Treatment Upcoming Encounters Date Type Department Care Team (Late st Contact Info) Description 07/22/2024 10:00 AM EDT Clinical Support [address] [address] 10/05/2024 10:30 AM EDT Office Visit [address] [address] Shannan Jorge FNP [address] [place] [address] documented as of this encounter Visit Diagnoses Not on filedocumented in this encounter Additional Health Concerns Assessment Noted Time PHQ-9 Depression Total Score: 0 08/09/19 23 10:11 AM EDT documented as of this encounter Care Teams Beam House Inspector Relationship Specialty Start Date End Date Shannan Jorge FNP [address] [place] [address] PCP - General Family Medicine 11/17/21 documented as of this encounter
--- OUTSIDE RECORDS SUMMARY | 2024-07-03 10:28 | XMS_ITS | Encounter Summary ---
Author Organization [employer] Address [address] 7 [place] [address] Care Team Providers Care Turbine Mechanic Name Role Phone [facility] Primary Care Provider [phone] Encounter Details Date Type Department Care Team ([facility] st Contact Info) Description 07/03/2024 9:15 AM EDT Office Visit [facility] [address] [place] [address] [facility] [address] [place] [address] Chronic right shoulder pain (Primary Dx); Dietary counseling; Exercise counseling; Class 3 severe obesity due to excess calories with serious comorbidity and body mass index (BMI) of 40.0 to 44.9 in adult (CMS/HCC); Primary hypertension; Psoriasis Social History Tobacco Use Types Packs/Day Years [...] AM EDT documented as of this encounter Last Filed Vital Signs Vital Sign Reading Time Taken Comments Blood Pressure 162/98 07/03/2024 9:23 AM EDT n m eds Pulse 104 07/03/2024 9:23 AM EDT Temperature 36.4 ??C (97.5 ??F) 07/03/2024 9:23 AM ED T Respiratory Rate 20 07/03/2024 9:23 AM EDT Oxygen Saturation - - Inhaled Oxygen Concentration - - Weight 108 kg (237 lb 3.2 oz) 07/03/2024 9:23 AM EDT Height 157.5 cm (5' 2 ) 07/03/2024 9:23 AM EDT Body Mass Index 43.38 07/03/2024 9:23 AM EDT documented in this encounter Plan of Treatment Upcoming Encounters Date Type Department Care Team (Late st Contact Info) Description 07/22/2024 10:00 AM EDT Clinical Support [facility] [address] [place] [id number] 10/05/2024 10:30 AM EDT Office Visit [facility] [address] [place] [address] KyburzShannan FNP [address] [place] [address] documented as of this encounter Visit Diagnoses Diagnosis Chronic right shoulder pain- Primary Pain in joint, shoulder region Dietary counseling Dietary surveillance and counseling Exercise counseling Class 3 severe obesity due to excess calories with serious comorbidity and body mass index (BMI) of 40.0 to 44.9 in adult ([facility]) Primary hypertension Unspecified essential hypertension Psoriasis Other psoriasis documented in this encounter Additional Health Concerns Assessment Noted Time PHQ-9 Depression Total Score: 0 07/04/19 25 9:24 AM EDT documented as of this encounter Care Teams Turbine Mechanic Relationship Specialty Start Date End Date Shannan Jorge FNP [address] [place] [id number] PCP - General Family Medicine 11/17/21 documented as of this encounter
[2024-07-03 11:32] LABS: MANUAL DIFF FLAG NO
[2024-07-03 11:46] LABS: Basophils Percent Auto 0.4 % (0-2); Eosinophils Absolute Auto 0.1 X10*3/uL (0.0-0.4); Eosinophils Percent Auto 1.1 % (0-4); Hematocrit 42.1 % (37.0-47.0); Hemoglobin 13.6 g/dl (12.0-16.0); Imm Gran Abs Auto 0.04 X10*3/uL (0.00-0.03); Imm Gran Pct Auto 0.4 % (0.0-0.4); Lymphocytes Absolute Auto 2.4 X10*3/uL (1.2-4.9); Lymphocytes Percent Auto 26.4 % (20-40); Mean Corpuscular HGB Conc 32.3 g/dl (31.0-35.0); Mean Corpuscular Hemoglobin 28.5 pg (27.0-33.0); Mean Corpuscular Volume 88.1 fL (80.0-98.0); Mean Platelet Volume 11.6 fL (9.4-12.3); Monocytes Absolute Auto 0.4 X10*3/uL (0.1-1.2); Monocytes Percent Auto 4.9 % (2-11); Neutrophils Absolute Auto 5.9 x10*3/uL (2.0-8.3); Neutrophils Percent Auto 66.8 % (45-73); Platelet Count 255 X10*3/uL (160-400); Red Blood Count 4.78 X10*6/uL (4.20-5.50); Red Cell Distribution Width 13.2 % (11.0-16.0); White Blood Count 8.9 X10*3/uL (4.8-10.8)
[2024-07-03 12:23] LABS: Alanine Aminotransferase 18 U/L (0-31); Alkaline Phosphatase 112 U/L (39-117); Anion Gap 10 (12-20); Aspartate Amino Transferase 21 U/L (5-31); Bilirubin Total 0.3 mg/dL (0.0-1.0); Blood Urea Nitrogen 14 mg/dL (9-16); Calcium 9.1 mg/dL (8.4-10.2); Carbon Dioxide 28 mmol/L (22-29); Chloride 108 mmol/L (96-108); Estimated Glomerular Filt Rate > 60; Glucose Random 129 mg/dL (60-115); Potassium 3.7 mmol/L (3.3-5.1); Sodium 142 mmol/L (135-145); TSH reflex Free T4 0.95 uIU/mL (0.32-4.0); Total Protein 7.2 g/dL (6.5-8.0)
== END 2024-07-03 09:52 | disposition home or self-care (01) ==
LOC: HO.HHCL 09:51
PROVIDERS: Visit Provider Registered Nurse
DX: R25.1 Tremor, unspecified (principal)
CPT/HCPCS: 36415; 80053; 84443; 85025

== ENCOUNTER 2024-10-21 08:14 | Outpatient (REF) | payer OTHER, SELFPAY ==
--- OUTSIDE RECORDS SUMMARY | 2024-10-21 08:17 | XMS_ITS | Encounter Summary ---
Author Organization [employer] Address [address] [place] [address] Care Team Providers Care Fixer Supervisor Name Role Phone Shannan Jorge [facility] Primary Care Provider [phone] Encounter Details Date Type Department Care Team (Latest Contact Info) Description 10/20/2024 Travel Social History Tobacco Use Types Packs/Day Years Used Date Smoking Tobacco: Every Day Cigarettes Passive Smoke Exposure: Current Smokeless Tobacco: Never Alcohol Use Standard Drinks/Week Comments Never 0 (1 standard drink = 0.6 oz pur e alcohol) Depression Answer Date Recorded Patient Health Questionnaire-9 Score 0 10/20/2024 Patient Health Questionnaire-9 Score 0 10/20/2024 Last PHQ-9: Questionnaire Data Not on file 0 10/20/2024 Housing Stability Answer Date Recorded What is your housing situation today? I have lisbet oquendo 10/12/[address] you li ve. Do you have problems with any of the following? None of the above 10/12/2024 Food Insecurity Answer Date Recorded Within the past 12 months, y ou worried that your food would run out before you got money to buy more: Never True 10/12/2024 Within the past 12 months,th e food you bought just didn't last and you didn't have enough money to get more: Never True Transportation Answer Date Recorded In the past 12 months, has l ack of transportation kept you from medical appts, meetings, work or from getting things needed for daily living? No 10/12/2024 Utilities Answer Date Recorded In the past 12 months, has t he electric, gas, oil or water company threatened to shut off services in your home? No 10/12/2024 Depression Answer Date Recorded Patient Health Questionnaire-2 Score 0 10/20/2024 Internet Access Answer Date Recorded Internet Access Q1 Yes 10/12/2024 Internet Access Q2 Not on file 10/12/2024 Comments Unknown Sex and Gender Information Value Date Recorded Sex Assigned at Female 01/22/2022 10:16 AM EDT Legal Sex Female 10:16 AM EDT Gender Identity Female 01/22/2022 10:16 AM EDT Sexual Orientation Straight 01/22/2022 10 :16 AM EDT documented as of this encounter Functional Status * Over the past 2 weeks, how often have you been bothered by any of the following problems? Question Answer Date of Assessment Author Patient Health Questionnaire-2 Score 0 10/20/2024 11:15 AM EDT Eva Dunn MA * Little interest or pleasure in doing things Answer Date of Assessment Author Not at all 10/20/2024 11:15 AM EDT Eva Roth MA * Feeling down, depressed, or hopeless Answer Date of Assessment Author Not at all 10/20/2024 11:15 AM EDT Eva Roth MA * Trouble falling or staying asleep, or sleeping too much Answer Date of Assessment Author Not at all 10/20/2024 11:15 AM EDT Eva Roth MA * Feeling tired or having little energy Answer Date of Assessment Author Not at all 10/20/2024 11:15 AM EDT Eva Roth MA * Poor appetite or overeating Answer Date of Assessment Author Not at all 10/20/2024 11:15 AM EDT Eva Roth MA * Feeling bad about yourself - or that you are a failure or have let yourself or your family down Answer Date of Assessment Author Not at all 10/20/2024 11:15 AM EDT Eva Roth MA * Trouble concentrating on things, such as reading the newspaper or watching television Answer Date of Assessment Author Not at all 10/20/2024 11:15 AM EDT Eva Roth MA * Moving or speaking so slowly that other people could have noticed? Or the opposite - being so fidgety or restless that you have been moving around a lot more than usual. Answer Date of Assessment Author Not at all 10/20/2024 11:15 AM EDT Eva Roth MA * Thoughts that you would be better off or hurting yourself in some way Answer Date of Assessment Author Not at all 10/20/2024 11:15 AM EDT Eva Roth MA * Patient Health Questionnaire-9 Score Answer Date of Assessment Author 0 10/20/2024 11:15 AM EDT Eva Roth MA * Over the last 2 weeks, how often have you been bothered by any of the following problems? Question Answer Date of Assessment Author Feeling nervous, anxious, or on edge 0 10/20/2024 11:15 AM EDT Eva Hernandez MA Not being able to stop or control worrying 0 10/20/2024 11:15 AM OTIST Eva Hernandez MA Worrying too much about different things 0 10/20/2024 11:15 AM EDT Eva Hernandez MA Trouble relaxing 0 10/20/2024 11:15 AM OTIST Eva Hernandez MA Being so restless that it is hard to sit still 0 10/20/2024 11:15 AM Eva Mayorga MA Becoming easily annoyed or irritable 0 10/20/2024 11:15 AM OTIST Eva Hernandez MA Feeling afraid as if something awful might happen 0 10/20/2024 11:15 AM EDT Eva Parish MA LORI-7 Total Score 0 10/20/2024 11:15 AM OTIST Eva Hernandez MA documented as of this encounter Plan of Treatment Upcoming Encounters Date Type Department Care Team (Late st Contact Info) Description 12/16/2024 10:00 AM EDT Office Visit [facility] [address] [place] [address] Shannan Jorge FNP [address] [place] [address] documented as of this encounter Visit Diagnoses Not on filedocumented in this encounter Additional Health Concerns Assessment Noted Time PHQ-9 Depression Total Score: 0 10/21/19 25 11:15 AM EDT documented as of this encounter Care Teams Fixer Supervisor Relationship Specialty Start Date End Date Shannan Jorge FNP [address] [place] [address] PCP - General Family Medicine 11/17/21 documented as of this encounter
[2024-10-21 11:13] LABS: B Type Natriuretic Peptide 15 pg/mL (<100)
[2024-10-21 12:04] LABS: Alanine Aminotransferase 20 U/L (0-31); Albumin Level 4.4 g/dL (3.5-5.0); Alkaline Phosphatase 104 U/L (39-117); Anion Gap 11 (12-20); Aspartate Amino Transferase 24 U/L (5-31); Blood Urea Nitrogen 12 mg/dL (9-16); Calcium 9.0 mg/dL (8.4-10.2); Carbon Dioxide 27 mmol/L (22-29); Chloride 106 mmol/L (96-108); Estimated Glomerular Filt Rate > 60; Potassium 4.3 mmol/L (3.3-5.1); Sodium 140 mmol/L (135-145); Total Protein 7.5 g/dL (6.5-8.0)
[2024-10-21 13:09] LABS: Hemoglobin A1C 141.2745 umol/L; Total Hemoglobin (HGBA1C) 3733.3493 umol/L
== END 2024-10-21 08:15 | disposition home or self-care (01) ==
LOC: HO.HHCL 08:14
PROVIDERS: PCP Registered Nurse; Visit Provider Registered Nurse
DX: R60.0 Localized edema (principal)
CPT/HCPCS: 36415; 80053; 83036; 83880

== ENCOUNTER → 2024-11-19 10:47 | Outpatient (REF) | payer OTHER, SELFPAY ==
--- NOTE | 2024-11-19 10:51 | CA_ITS ---
Transthoracic Echocardiogram Patient (Last, First, Middle): Ivana Ramirez, Gender: F Date of : 1970 Age: 54 Procedure Date: 11/19/2024 Procedure Type: Transthoracic Echocardiogram Location: OP Height: 157.48 cm Weight: 108.86 kg BSA: 2.07 m2 Heart Rate: bpm BP: 150 / 82 mmHg Insurance Auditor: MICKY Referring MD: Shannan Jorge PLAYER MANAGER Symptoms: R60.0 BI LAT LE EDEMA Study Quality: Adequate w contrast ECG Rhythm: Sinus Conclusions: - The left ventricular systolic function is normal. The calculated ejection fraction is 56% by biplane method. - No obvious valvular pathology seen on this study. Findings Procedure Information Contrast agent, definity, is being given per protocol without apparent complications. Left Ventricle Normal left ventricular cavity size. There is normal left ventricular wall thickness. The left ventricular systolic function is normal. The calculated ejection fraction is 56% by biplane method. There is no evidence of regional wall motion abnormalities. Diastolic function is normal for age. Right Ventricle Normal right ventricular cavity size and systolic function. Atria Both atria are normal in size. Aortic Valve The aortic valve was not well visualized. There is no aortic valve stenosis. There is no aortic valve regurgitation. Mitral Valve The mitral valve appears normal. There is no mitral valve regurgitation. There is no mitral valve stenosis. Pulmonic Valve The pulmonic valve is likely normal. Tricuspid Valve There is no tricuspid valve regurgitation. Tricuspid regurgitation envelope is inadequate for calculation of right ventricular systolic pressure. Great Vessels The asc aorta and aortic arch are normal in size. Venous The inferior vena cava is normal in size and collapses greater than 50% with inspiration. Pericardium/Pleural There is no evidence of pericardial effusion. Prior Study Comparison No prior study available for comparison. Recommendations, Care & Conclusions No obvious valvular pathology seen on this study. Measurements 2D Linear Measurements IVSd: 1.04 0.6-0.9/0.6-1.0 cm LVIDd: 4.66 3.9-5.3/4.2-5.9 cm LVIDd Index: 2.25 2.4-3.2/2.2-3.1 cm/m2 LVIDs: 3.17 2.0-3.6 cm LVPWd: 0.80 0.7-1.1 cm LA Diam: 3.60 2.7-3.8/3.0-4.0 cm LAIDs Index: 1.74 1.5-2.3 cm/m2 LV Mass: 180.24 67-162/88-224 g LV Mass Index: 87.07 43-95/49-115 g/m2 LVOT Diam: 2.10 3.0+(-)1.3 cm 2D Systolic Function EF 4C: 53.00 >55% EF 2C: 60.20 >55% EF BiP: 56.40 >55% Mitral Valve MV Pk E: 0.58 MV PK A: 0.66 MV Decel Time: 203.00 E/A: 0.90 E'Lateral: 7.29 E'Medial: 6.85 E/E' Med: 8.40 E/E' Lat: 7.90 PHT: 59.00 MVA PHT: 3.73 Decel Branch: 2.85 Aortic Valve AoV Pk Cricket: 1.56 AoV Mn Cricket: 0.94 AoV VTI: 0.30 AoV Pk Grad: 10.00 Aov Mn Grad: 4.00 JESUS Cont.VTI: 2.16 LVOT LVOT Pk Cricket: 0.95 LVOT Mn Cricket: 0.59 LVOT VTI: 0.19 LVOT Pk Grad: 4.00 LVOT Mn Grad: 2.00 LVOT Diam: 2.10 LVOT Area: 3.46 Diastolic Function MV Pk E: 0.58 MV Pk A: 0.66 E/A: 0.90 E'Medial: 6.85 E/E' Med: 8.40 E' Laterial: 7.29 E/E' Lat: 7.90 Right Ventricle TAPSE (mm): 25.40 TVS' Cricket: 11.50 Tricuspid Valve RA Press: 8.00 Great Vessels Aorta Sinus of Valsalva: 3.13 2.0-3.5 cm Ao Asc: 2.70 2.1-3.4 cm Ao Arch: 3.00 Updated in Other Vendor System with Status of Final Cyril Zimmer MD electronically signed on 11/21/2024 9:46:16 AM with status of Final
--- OUTSIDE RECORDS SUMMARY | 2024-11-19 12:17 | XMS_ITS | Encounter Summary ---
Author Organization [employer] Address [address] [place] [address] [address] [place] [address] Care Team Providers Care Housing Quality Standard Inspector Name Role Phone [place] [facility] Primary Care Provider [phone] Reason for Visit * Reason Onset Date Comments cancelled appt 11/13/2022 Encounter Details Date Type Department Care Team ([facility] st Contact Info) Description 11/13/2022 Telephone [facility] [address] [place] [address] [facility] [address] [place] [address] cancelled appt Social History Tobacco Use Types [...] Miscellaneous Notes * Telephone Encounter - Violetta Ross - 11/13/2022 11:13 AM EDT Tc from patient calling to cancel PAP appt from 11/13/22 due to a family emergency. Details: 3 months PAP with me documented in this encounter Plan of Treatment Upcoming Encounters Date Type Department Care Team (Late st Contact Info) Description 12/16/2024 10:00 AM EDT Office Visit [facility] [address] [place] [address] Shannan Jorge FNP [address] [place] [address] 02/05/2025 11:00 AM EST Office Visit [facility] [address] [place], [place] [phone] Milind Houston MD [address] [place], [place] [phone] documented as of this encounter Visit Diagnoses Not on filedocumented in this encounter Additional Health Concerns Assessment Noted Time PHQ-9 Depression Total Score: 0 08/09/19 23 10:11 AM EDT documented as of this encounter Care Teams Housing Quality Standard Inspector Relationship Specialty Start Date End Date Shannan Jorge FNP [address] [place] [id number] PCP - General Family Medicine 11/17/21 documented as of this encounter
--- OUTSIDE RECORDS SUMMARY | 2024-11-19 12:17 | XMS_ITS | Encounter Summary ---
Author Organization [employer] Address [address] [place] [address] [address] Care Team Providers Care Slipcover Cutter Name Role Phone Shannan Jorge Primary Care Provider [phone] Encounter Details Date Type Department Care Team (Latest Contact Info) Description 11/22/[address] [facility] CONVERSIONS Dental, Provider, DDS Social History Tobacco [...] Description 12/16/2024 10:00 AM EDT Office Visit [facility] [address] [place] [phone] Shannan Jorge FNP [address] [place] [address] 02/05/2025 11:00 AM EST Office Visit [facility] [address] [place] [phone] Milind Houston MD [address] [place] [phone] documented as of this encounter Visit Diagnoses Not on filedocumented in this encounter Care Teams Slipcover Cutter Relationship Specialty Start Date End Date Shannan Jorge FNP [address] [place] [address] PCP - General Family Medicine 11/17/21 documented as of this encounter
--- OUTSIDE RECORDS SUMMARY | 2024-11-19 12:17 | XMS_ITS | Clinical Summary ---
Author Organization [employer] Address [address] [place] [address] 7 [place] [address] Care Team Providers Care Zinc Plater Name Role Phone Shannan Jorge [facility] Primary Care Provider [phone] Allergies No known active allergies Medications benzoyl [...] index (BMI) of 40.0 to 44.9 in adult,Encounter for smoking cessation counseling Take 1 tablet by oral route daily 30 tablet 2 09/18/19 23 Active hydrOXYzine HCl (Atarax) 25 MG tabletIndications :Depressive disorder Take 1 tablet (25 mg) by mouth if needed at bedtime for anxiety. 120 tablet 1 07/03/19 24 Active rosuvastatin (Crestor) 10 MG tabletIndications :Mixed hyperlipidemia Take 1 tablet (10 mg) by mouth in the morning. 30 tablet 11 07/03/19 24 Active Blood Pressure kitIndications:Pr imary hypertension Use as directed 1 kit 08/30/19 24 Active hydroCHLOROthiazi de 12.5 MG tabletIndications :Primary hypertension Take 1 tablet (12.5 mg) by mouth Once per day. 90 tablet 3 07/04/19 25 026 Active olmesartan (BENIcar) 5 MG tabletIndications :Primary hypertension TAKE 1 TABLET(5 MG) BY MOUTH IN THE MORNING 180 tablet 07/04/19 25 Active cetirizine (ZyrTEC) 10 MG tabletIndications :Seasonal allergies TAKE 1 TABLET BY MOUTH EVERY DAY 30 tablet 5 07/21/19 25 Active ibuprofen 600 MG tabletIndications :Chronic right shoulder pain TAKE 1 TABLET BY MOUTH EVERY 6 HOURS NEEDED FOR MILD PAIN 30 tablet 1 08/13/19 25 Active FLUoxetine (PROzac) 20 MG capsuleIndication s:Depressive disorder TAKE 1 CAPSULE BY MOUTH EVERY MORNING 90 capsule 3 09/19/19 25 Active rosuvastatin (Crestor) 20 MG tablet TAKE 1 TABLET BY MOUTH EVERY DAY 90 tablet 3 09/19/19 25 Active Clobetasol Propionate 0.05 % shampooIndication s:Scalp psoriasis USE DAILY ON SCALP DIRECTED 118 mL 11 10/22/19 25 Active Tirzepatide-Weigh t Management (Zepbound) 2.5 MG/0.5ML solution auto-injectorIndi cations:Class 3 severe obesity due to excess calories with serious comorbidity and body mass index (BMI) of 40.0 to 44.9 in adult Inject 0.5 mL (2.5 mg) under the skin 1 (one) time per week. 2 mL 1 10/27/19 25 025 Active triamcinolone (Kenalog) 0.1 % ointmentIndicatio ns:Psoriasis APPLY TOPICALLY TWICE DAILY 30 g 1 10/29/19 25 Active Clobetasol Propionate 0.05 % shampooIndication s:Scalp psoriasis Use daily on scalp 118 mL 11 08/30/19 24 025 Discontinued triamcinolone (Kenalog) 0.1 % ointmentIndicatio ns:Psoriasis Apply topically 2 times daily. 30 g 1 07/04/19 25 025 Discontinued clotrimazole (Lotrimin) 1 % creamIndications: Tinea pedis of both feet Apply topically 2 times daily for 28 days. 30 g 5 10/21/19 25 025 Active Problems Problem Noted Date Diagnosed Date Prediabetes 10/26/2024 Healthcare maintenance 08/18/2022 Overview (06/11/2023): Mammo: Ordered 06/2022 Pap: Hx unknown. Will schedule today C-scope: 2020, polyps. Repeat 3 years. BMD: Routine age 66 Lung cancer screening: [facility] 01/2023 Primary hypertension 06/20/2022 Overview (08/18/2022): Olmesartan 5mg daily Hydrochlorothiazide 12.5mg Maintenance: BMP: Pending Lipid Panel: [...] Assessment & Plan (08/18/2022 10:37 PM EDT): Continue current regimen Complete previously ordered labs Adenomatous polyp of colon 12/09/2020 Hyperlipidemia 08/11/2020 Vitamin D deficiency 08/11/2020 Psoriasis 11/13/2011 Overview (08/18/2022): Followed by [facility] derm Depressive disorder 10/22/2011 Overview (09/17/2022): Fluoxetine 20mg daily No current therapy Assessment & Plan (08/18/2022 10:36 PM EDT): Continue current regimen Patient will reschedule initial session with Ramesh Tobacco dependence syndrome 09/20/2011 Overview (06/11/2023): 1/2 PPD since age 17 35 pack year smoking hx. Followed by [facility] LDLCT screening program. Last imaging 02/07/23 with Lung-RADS category 1S. Assessment & Plan (08/18/2022 10:26 PM EDT): Declines cessation at this time Accepts referral to LDLCT screening Resolved Problems Problem Noted Date Diagnosed Date Resolved Date Hemorrhoids 02/13/2021 08/18/2022 Candidal intertrigo 11/28/2016 08/19/19 23 Carpal tunnel syndrome 10/22/201108/18 Encounters Date Type Department Care Team Description 10/28/2024 Results Follow-Up [facility] [address] [place] [address] Shannan Jorge FNP Comprehensive Metabolic Panel, Hemoglobin A1c, B Type Natriuretic Peptide (BNP) 10/28/[address] [facility] MEDICINE [address] [place] [address] Shannan Jorge FNP Psoriasis 10/26/[address] [address] Shannan Jorge FNP Prior Authorization (Kingsley DIAZ: Cornelius) 10/21/2024 Refill [facility] [address] [place] [address] Shannan Jorge FNP Scalp psoriasis 10/20/2024 11:15 AM EDT Office Visit [address] [address] Shannan Jorge FNP Bilateral lower extremity edema (Primary Dx); Tinea pedis of both feet; Primary hypertension; Excessive daytime sleepiness; Prediabetes; Skin nodule; Class 3 severe obesity due to excess calories with serious comorbidity and body mass index (BMI) of 40.0 to 44.9 in adult 10/20/2024 Travel 10/19/2024 Telephone [facility] [address] [place] [address] Shannan Jorge FNP Chart Prep 10/12/2024 9:45 AM EDT Office Visit 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 MEDICINE [address], [place] [phone] Shannan Jorge FNP Pre-visit Planning (SDOH screening negative and tobacco screening positive) 10/12/2024 Travel 10/02/2024 Telephone [facility] [place] [address] ArtesiaShannan FNP Chart Prep 09/24/2024 Patient Outreach [facility] [address] [place] [address] ArtesiaShannan [facility] Pre-visit Planning (Unable to complete full screening will complete in office) 09/18/2024 Refill [facility] [address] [place] [address] ArtesiaShannan [facility] Depressive disorder 08/27/2024 Telephone [facility] [place] [address] ArtesiaShannan FNP Call Back Request from Last 3 Months Immunizations Immunization Administration Dates Next Due Influenza, IIV3, injectable 02/13/2010 Pneumococcal Conjugate PCV 20 08/30/2023 Tdap 12/06/2020 Family History Medical History Relation Name Comments Diabetes type II Mother Glaucoma Mother Hypertension Mother Stroke Mother Colon cancer [...] Sign Reading Time Taken Comments Blood Pressure 138/90 10/20/2024 11:14 AM EDT Pulse 76 10/20/2024 11:14 AM EDT Temperature 36.4 C (97.5 F) 10/20/2024 11:14 AM EDT Respiratory Rate 20 10/20/2024 11:14 AM EDT Oxygen Saturation 98% 07/03/2023 9:50 AM EDT Inhaled Oxygen Concentration - - Weight 109 kg (241 lb 3.2 oz) 10/20/2024 11:14 A M EDT Height 157.5 cm (5' 2 ) 10/20/2024 11:14 AM EDT Body Mass Index 44.12 10/20/2024 11:14 AM EDT Plan of Treatment Upcoming Encounters Date Type Department Care Team (Late st Contact Info) Description 12/16/2024 10:00 AM EDT Office Visit [facility] MEDICINE [address] [place] [phone] Shannan Jorge FNP [address] [place] [address] 02/05/2025 11:00 AM EST Office Visit [facility] MEDICINE [address] [place] [address] Milind Houstno MD [address] [place] [address] Health Maintenance Due Date Last Done Comments CT Colonography 1971 FIT DNA/Cologuard 1971 FIT 1971 FOBT 1970 Sigmoidoscopy 1971 Hepatitis B Vaccines (1 of 3 - 19+ 3-dose series) 07/15/1990 Pap Smear 07/15/1992 Cervical Cancer Screening 07/15/2001 HPV/Cotest 07/15/2001 Zoster Vaccines (1 of 2) 07/15/2021 Colonoscopy 03/25/2023 03/25/2020 Colorectal Cancer Screening 03/25/2023 Mammogram 08/29/2023 08/28/2022, 08/28/2022 COVID-19 Vaccine (1 - 2023-2 5 season) 2023 Influenza Vaccine (#1) 2024 02/13/2010 SDOH Screening 10/12/2025 10/12/2024 Alcohol/Substance Use Screening 10/20/2025 10/20/2024 Depression Screening 10/20/2025 10/20/2024, 10/20/2024 Disability Screening 10/20/2025 10/20/2024 Diabetes: Hemoglobin A1C 10/21/2025 025, 08/08/2022 Tobacco Screening 10/26/2025 10/26/2024 Lipid Panel 08/29/2028 08/30/2023, 08/08/2022, 08/05/2020 DTaP/Tdap/Td [...] patient's age to complete this topic Meningococcal B Vaccine Aged Out No l onger eligible based on patient's age to complete [...] Procedure Name Priority Date/Time Associated Diagnosis Comments B TYPE NATRIURETIC PEPTIDE (BNP) Routine 10/21/2024 8:23 AM EDT Bilateral lower extremity edema HEMOGLOBIN A1C Routine 10/21/2024 8:23 AM EDT Bilateral lower extremity edema COMPREHENSIVE METABOLIC PANEL Routine 10/21/2024 8:23 AM EDT Bilateral lower extremity edema LIPID PANEL, STANDARD Routine 08/30/2023 11:15 AM [...] Recently Relevant to Health Maintenance Results * B Type Natriuretic Peptide (BNP) (10/21/2024 8:23 AM EDT) B Type Natriuretic Peptide 15 <100 pg/mL [facility] Blood Venous blood specimen / Unknown 10/21/2024 8:23 AM EDT 10/21/2024 10:50 AM EDT [facility] LAB BLOOD ORDERABLES Final Re sult [facility] [address] [place] [address] [phone] * Hemoglobin A1c (10/21/2024 8:23 AM EDT) Hemoglobin A1c 5.6 <6.0 % [facility] Comment:Hemoglobin A1C Refer ence Range Adults: 4.8 - 6.0 % Non diabetic: < 6.0 % Goal: < 7.0 %Additional Action Suggested: > 8.0 %Note: Hemoglobin A1c results are invalid for patients with abnormal amounts of HbF. Blood transfusions may impact the HbA1c concentration in the patient sample. Estimated Average Glucose 114 mg/dL [facility] Comment:eAG = Estimated ave rage glucose which is %A1C expressed asaverage glucose, using the formula of the Z2E-YjmusnhUcxtwrq Glucose study (ADAG), Diabetes Care, Vol.31,#8,Oct. 2007 Blood Venous blood specimen / Unknown 10/21/2024 8:23 AM EDT 10/21/2024 11:18 AM EDT [facility] [employer] LAB BLOOD ORDERABLES Final Re sult Performing Organization Address [facility]/ZIP Co de Phone Number [facility] [address] [place] [phone] * (ABNORMAL) Comprehensive Metabolic Panel (10/21/2024 8:23 AM EDT) Sodium 140 135 - 145 mmol/L [facility] Potassium 4.3 3.3 - 5.1 mmol/L [facility] Chloride 106 96 - 108 mmol/L [facility] Carbon Dioxide 27 22 - 29 mmol/L [facility] Anion Gap 11(L) 12 - 20 [facility] Urea Nitrogen (BUN) 12 9 - 16 mg/dL [facility] Creatinine, Serum 0.60 0.5 - 1.4 mg/dL [facility] Estimated Glomerular Filt Rate >60 [facility] Comment:Chronic Kidney Disea se: Estimated GFR < 60 mL/min/1.47q4Gdfabj Kidney Disease: Estimated GFR < 15 mL/min/1.73m2 Glucose 98 60 - 115 mg/dL [facility] Calcium 9.0 8.4 - 10.2 mg/dL [facility] Bilirubin, Total 0.4 0.0 - 1.0 mg/dL [facility] Aspartate Amino Transferase 24 5 - 31 U/L [facility] Alanine Aminotransferase 20 0 - 31 U/L [facility] Total Protein 7.5 6.5 - 8.0 g/dL [facility] Albumin Level 4.4 3.5 - 5.0 g/dL [facility] Alkaline Phosphatase 104 39 - 117 U/L [facility] Blood Venous blood specimen / Unknown 10/21/2024 8:23 AM EDT 10/21/2024 11:18 AM EDT [facility] [employer] LAB BLOOD ORDERABLES Final Re sult [facility] [address] [place] [address] [phone] * (ABNORMAL) Lipid Panel, Standard (08/30/2023 11:15 AM EDT) Triglycerides 139 <150 mg/dL [facility] Comment:Desirable Triglyceri de: less than 150 mg/dLBorderline High Triglyceride 150-199 mg/dLHigh Triglyceride: 200-499 mg/dLVery High Triglyceride: greater than or equal to 5OO mg/dL Cholesterol 219(H) <200 mg/dL [facility] Comment:Desirable Cholestero l: less than 200 mg/dLBorderline High Cholesterol: 200-239 mg/dLHigh Cholesterol: greater than 239 mg/dL LDL Cholesterol Calculated 154(H) <100 mg/dL [facility] Comment:Desirable LDL: less than 100 mg/dLNear Optimal/Above Optimal LDL: 110- 129 mg/dLBorderline High LDL: 130-159 mg/dLHigh LDL: 160-189 mg/dLVery High LDL: greater than or equal to 190 mg/dL HDL Cholesterol 38(L) >40 mg/dL [facility] Comment:Desirable HDL: great er than 40 mg/dL Note: This HDL assay may give artificially low results in patients with liver disease. Blood Venous blood specimen / Unknown 08/30/2023 11:15 AM EDT 08/30/2023 1:01 PM EDT [facility] [employer] LAB BLOOD ORDERABLES Final Re sult [facility] [address] [place] [address] [phone] * BI Mammogram Screening Tomosynthesis Bilateral (08/28/2022 12:05 PM EDT) Anatomical Region Laterality Modality Breast Bilateral Mammography 08/28/2022 12:0 5 PM EDT Narrative 08/31/2022 9:22 AM EDT [facility]'s [address] [place] [address] Mammography Report Signed Patient: Ivana Ramirez MR#: [id number] 60 : 1970 Acct:[id number] Age/Sex: 52 / F ADM Date: 08/28/22 Loc: HO.MAMMO Attending Dr: Shannan Jorge [employer] Ordering Physician: Shannan Jorge Results: 2Beni gn Findings Date of Service: 08/28/22 Follow Up: 1 Year From [facility] Mammogram Procedure(s): MM tomosynthesis screening BI Accession Number(s): [id number] cc: Shannan Jorge [employer] EXAMINATION: MM SCREENING DIGITAL BREAST TOMOSYNTHESIS, BILATERAL [...] in OV> 08/31/22 0919 DD/ 1205 TD/TT: Seating And Mobility Technologist: OTTONIEL Procedure Note Donotuseinterpreter, Image - 09/20/2022 [facility]'[address] [place] [address] Mammography Report Signed Patient: Thierry Ramirez#: [id number] 60 : 1970Acct:[id number] Age/Sex: 52 / FADM Date: 08/28/22 Loc: HO.MAMMO Attending Dr: Shannan Jorge [employer] Ordering Physician: Shannan Jorge FNPResults: 2Beni gn Findings Date of Service: 08/28/22Follow Up: 1 Year From [facility] Mammogram Procedure(s): MM tomosynthesis screening BI Accession Number(s): [id number] cc: Shannan Jorge [employer] EXAMINATION: MM SCREENING DIGITAL BREAST TOMOSYNTHESIS, BILATERAL [...] by Jj Milner MD in OV> 08/31/22 09 DD/ 1205 TD/TT: Seating And Mobility Technologist: ALCAZAR [facility] External Provider IMG BI PROCEDURES Final Result * Hepatitis C Antibody with Reflex to HCV, RNA, Quantitative, Real-Time PCR (08/08/2022 10:53 AM EDT) Hepatitis C Antibody NON-REACT CHASE NON-REACT CHASE [facility] Index 0.12 <1.00 [facility] Comment: HCV antibody was non-reactive. There is no laboratory evidence of HCV infection. In most cases, no further action is required. However, if recent HCV exposure is suspected, a test for HCV RNA (test code 50305) is suggested. For additional information please refer to http://education.[facility]/faq/TJF91f0 (This link is being provided for informational/ educational purposes only.) Blood Venous blood specimen / Unknown 08/08/2022 10:53 AM EDT 08/08/2022 10:53 AM EDT Narrative [facility] - 08/10/2022 4:35 PM EDT FASTING:YES FASTING: YES [facility] LAB BLOOD ORDERABLES Final Re sult [facility] [address] [facility], [facility], [place] [address] [employer] [address] [place] [phone] * HIV-1/2 Antigen and Antibodies, Fourth Generation, with Reflexes (08/08/2022 10:53 AM EDT) HIV Antigen/Antibody, 4th Generation NON-REAC TIVE NON-REAC TIVE [employer] [place] [employer] [facility] Comment: HIV-1 antigen and HIV-1/HIV-2 antibodies were not detected. There is no laboratory evidence of HIV infection. PLEASE NOTE: This information has been disclosed to you from records whose confidentiality may be protected by state law. If your state requires such protection, then the state law prohibits you from making any further disclosure of the information without the specific written consent of the person to whom it pertains, or as otherwise permitted by law. A general authorization for the release of medical or other information is NOT sufficient for this purpose. For additional information please refer to http://education.[facility]/faq/AZQ752 (This link is being provided for informational/ educational purposes only.) The performance of this assay has not been clinically validated in patients less than 2 years old. Blood Venous blood specimen / Unknown 08/08/2022 10:53 AM EDT 08/08/2022 10:53 AM EDT Narrative [facility] - 08/10/2022 4:35 PM EDT FASTING:YES FASTING: YES [facility] [employer] LAB BLOOD ORDERABLES Final Re sult [facility] [address] [place] [address] [employer] [place] [employer] [facility] [address] [place] [address] * (ABNORMAL) Colonoscopy (03/25/2020 10:43 PM EST) Colonoscopy Abnormal( A) Normal Comment:Polyps. Repeat 3 yea rs Historical Provider HEALTH MAINTENANCE Final Result from Last 3 Months or Most Recently Relevant to Health Maintenance Insurance [facility] 2 Care Teams Zinc Plater Relationship Specialty Start Date End Date Shannan Jorge FNP [address] [place] [phone] PCP - General Family Medicine 11/17/21
== END ==
LOC: HO.CARD 10:47
PROVIDERS: PCP Registered Nurse; Visit Provider Registered Nurse
DX: R60.0 Localized edema (principal)
CPT/HCPCS: 93306; Q9957

== ENCOUNTER → 2024-11-19 10:51 | Outpatient (BNV) | payer OTHER, SELFPAY | PROVIDERS: PCP Registered Nurse; Visit Provider Internal Medicine | DX: R60.0 Localized edema (principal) | CPT/HCPCS: 93306 ==

== ENCOUNTER → 2024-12-08 20:30 | Outpatient (REF) | payer OTHER, SELFPAY ==
--- OUTSIDE RECORDS SUMMARY | 2024-12-08 20:51 | XMS_ITS | Encounter Summary ---
Author Organization [employer] Address [address] [place] [address] [address] [address] Care Team Providers Care Sales Trainee Name Role Phone Shannan Jorge Primary Care Provider [phone] Encounter Details Date Type Department Care Team (Latest Contact Info) Description 11/22/2020 Abstract [facility] CONVERSIONS Dental, Provider, DDS Social [...] Description 12/16/2024 10:00 AM EDT Office Visit [facility] MEDICINE [address] [place] [phone] Shannan Jorge FNP [address] [place] [address] 02/05/2025 11:00 AM EST Office Visit [facility] MEDICINE [address] [place] [address] Milind Houston MD [address] [place] [phone] documented as of this encounter Visit Diagnoses Not on filedocumented in this encounter Care Teams Sales Trainee Relationship Specialty Start Date End Date Shannan Jorge FNP [address] [place] [address] PCP - General Family Medicine 11/17/21 documented as of this encounter
--- OUTSIDE RECORDS SUMMARY | 2024-12-08 20:51 | XMS_ITS | Encounter Summary ---
Author Organization [employer] Address [address] [place] [address] [address] [place] [address] Care Team Providers Care Ed Transporter Name Role Phone [facility] Primary Care Provider [phone] Reason for Visit * Reason Onset Date Comments cancelled appt 11/13/2022 Encounter Details Date Type Department Care Team ([facility] st Contact Info) Description 11/13/2022 Telephone [facility] MEDICINE [address] [place] [address] [facility] [address] [place] [address] cancelled appt Social History Tobacco Use Types [...] Description 12/16/2024 10:00 AM EDT Office Visit [facility] MEDICINE [address] [place] [address] Shannan Jorge FNP [address] [place] [address] 02/05/2025 11:00 AM EST Office Visit [facility] MEDICINE [address] [place], [place] [phone] Milind Houston MD [address] [place], [place] [phone] documented as of this encounter Visit Diagnoses Not on filedocumented in this encounter Additional Health Concerns Assessment Noted Time PHQ-9 Depression Total Score: 0 08/09/19 23 10:11 AM EDT documented as of this encounter Care Teams Ed Transporter Relationship Specialty Start Date End Date Shannan Jorge FNP [address] [place] [address] PCP - General Family Medicine 11/17/21 documented as of this encounter
--- OUTSIDE RECORDS SUMMARY | 2024-12-08 20:51 | XMS_ITS | Clinical Summary ---
Author Organization [email or web address] Address [address] [place] [address] 7 [place] [address] Care Team Providers Care Clothing Worker Name Role Phone Shannan Jorge [facility] Primary Care Provider [phone] Allergies No known active allergies Medications benzoyl peroxide cleanser (Benzac AC) 2.5 % liquid topical wash Apply topically 1 (one) time each day. 1 Active ketoconazole (Nizoral) 2 % shampooIndications :Seborrheic dermatitis Apply topically 2 (two) times a week. 120 mL 1 3 Active naltrexone-buPROPi on ER (Contrave) 8-90 MG ER tabletIndications: Class 3 severe obesity due to excess calories with serious comorbidity and body mass index (BMI) of 40.0 to 44.9 in adult,Encounter for smoking cessation counseling Take 1 tablet by oral route daily 30 tablet 2 3 Active hydrOXYzine HCl (Atarax) 25 MG tabletIndications: Depressive disorder Take 1 tablet (25 mg) by mouth if needed at bedtime for anxiety. 120 tablet 1 4 Active rosuvastatin (Crestor) 10 MG tabletIndications: Mixed hyperlipidemia Take 1 tablet (10 mg) by mouth in the morning. 30 tablet 11 4 Active Blood Pressure kitIndications:Zee jewel hypertension Use as directed 1 kit 4 Active hydroCHLOROthiazid e 12.5 MG tabletIndications: Primary hypertension Take 1 tablet (12.5 mg) by mouth Once per day. 90 tablet 3 5 026 Active olmesartan (BENIcar) 5 MG tabletIndications: Primary hypertension TAKE 1 TABLET(5 MG) BY MOUTH IN THE MORNING 180 tablet 5 Active cetirizine (ZyrTEC) 10 MG tabletIndications: Seasonal allergies TAKE 1 TABLET BY MOUTH EVERY DAY 30 tablet 5 5 Active ibuprofen 600 MG tabletIndications: Chronic right shoulder pain TAKE 1 TABLET BY MOUTH EVERY 6 HOURS NEEDED FOR MILD PAIN 30 tablet 1 5 Active FLUoxetine (PROzac) 20 MG capsuleIndications :Depressive disorder TAKE 1 CAPSULE BY MOUTH EVERY MORNING 90 capsule 3 5 Active rosuvastatin (Crestor) 20 MG tablet TAKE 1 TABLET BY MOUTH EVERY DAY 90 tablet 3 5 Active Clobetasol Propionate 0.05 % shampooIndications :Scalp psoriasis USE DAILY ON SCALP DIRECTED 118 mL 11 5 Active Tirzepatide-Weight Management (Zepbound) 2.5 MG/0.5ML solution auto-injectorIndic ations:Class 3 severe obesity due to excess calories with serious comorbidity and body mass index (BMI) of 40.0 to 44.9 in adult Inject 0.5 mL (2.5 mg) under the skin 1 (one) time per week. 2 mL 1 5 025 Active triamcinolone (Kenalog) 0.1 % ointmentIndication s:Psoriasis APPLY TOPICALLY TWICE DAILY 30 g 1 5 Active clotrimazole (Lotrimin) 1 % creamIndications:T inea pedis of both feet Apply topically 2 times daily for 28 days. 30 g 5 5 025 Active Problems Problem Noted Date Diagnosed Date Prediabetes 10/26/2024 Healthcare maintenance 08/18/2022 Overview (06/11/2023): Mammo: Ordered 06/2022 Pap: Hx unknown. Will schedule today C-scope: 2020, polyps. Repeat 3 years. BMD: Routine age 66 Lung cancer screening: [facility] 01/2023 Primary hypertension 06/20/2022 Overview (08/18/2022): Olmesartan [...] 08/11/2020 Psoriasis 11/13/2011 Overview (08/18/2022): Followed by [facility] derm Depressive disorder 10/22/2011 Overview (09/17/2022): Fluoxetine 20mg daily No current therapy Assessment & Plan (08/18/2022 10:36 PM EDT): Continue current regimen Patient will reschedule initial session with Ramesh Tobacco dependence syndrome 09/20/2011 Overview (06/11/2023): 1/2 PPD since age 17 35 pack year smoking hx. Followed by [facility] LDLCT screening program. Last imaging 02/07/23 with Lung-RADS category 1S. Assessment & Plan (08/18/2022 10:26 PM EDT): Declines cessation at this time Accepts referral to LDLCT screening Resolved Problems Problem Noted Date Diagnosed Date Resolved Date Hemorrhoids 02/13/2021 08/18/2022 Candidal intertrigo 11/28/2016 08/19/19 Carpal tunnel syndrome 10/22/201108/18 Encounters Date Type Department Care Team Description 11/25/[address] [address] Portia Burrell RN Results 10/28/2024 Results Follow-Up [facility] [place] [address] Shannan Jorge FNP Comprehensive Metabolic Panel, Hemoglobin A1c, B Type Natriuretic Peptide (BNP) 10/28/2024 Refill [facility] MEDICINE [address] [place] [id number] Shannan Jorge FNP Psoriasis 10/26/[address] [address] Shannan Jorge FNP Prior Authorization (Kingsley DIAZ: Cornelius) 10/21/[address] [address] Shannan Jorge FNP Scalp psoriasis 10/20/2024 11:15 AM EDT Office Visit [address] [address] Shannan Jorge FNP Bilateral lower extremity edema (Primary Dx); Tinea pedis of both feet; Primary hypertension; Excessive daytime sleepiness; Prediabetes; Skin nodule; Class 3 severe obesity due to excess calories with serious comorbidity and body mass index (BMI) of 40.0 to 44.9 in adult 10/20/2024 Travel 10/19/[address] [address] Shannan Jorge FNP Chart Prep 10/12/2024 9:45 AM EDT Office Visit [facility] OPTOMETRY [address] [place] [phone] Cecilia Combs, OD 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 (Primary Dx); Regular astigmatism, bilateral 10/12/2024 Patient Outreach [address] [address] Shannan Jorge FNP Pre-visit Planning (SDOH screening negative and tobacco screening positive) 10/12/2024 Travel 10/02/[address] [address] Shannan Jorge FNP Chart Prep 09/24/2024 Patient Outreach [facility] MEDICINE [address] [place] [address] Shannan Jorge FNP Pre-visit Planning (Unable to complete full screening will complete in office) 09/18/2024 Refill [facility] [address] [place] [address] Shannan Jorge FNP Depressive disorder from Last 3 Months Immunizations Immunization Administration [...] Description 12/16/2024 10:00 AM EDT Office Visit [facility]INE [address] [place] [phone] [facility], [facility] [address] [place] [address] 02/05/2025 11:00 AM EST Office Visit [address] [address] Milind Houston MD [address] [place] [address] Health Maintenance Due Date Last Done Comments CT Colonography 1971 FIT DNA/Cologuard 1971 FIT 1971 FOBT 1970 Sigmoidoscopy 1971 Hepatitis B Vaccines (1 of 3 - 19+ 3-dose series) 07/15/1990 Pap Smear 07/15/1992 Cervical Cancer Screening 07/15/2001 HPV/Cotest 07/15/2001 Zoster Vaccines (1 of 2) 07/15/2021 Colonoscopy 03/25/2023 03/25/2020 Colorectal Cancer Screening 03/25/2023 Mammogram 08/29/2023 08/28/2022, 08/28/2022 COVID-19 Vaccine (1 - 2023-2 5 season) 2024 Influenza Vaccine (#1) 2024 02/13/2010 SDOH Screening [...] B Type Natriuretic Peptide 15 <100 pg/mL [facility] Blood Venous blood specimen / Unknown 10/21/2024 8:23 AM EDT 10/21/2024 10:50 AM EDT [facility] [employer] LAB BLOOD ORDERABLES Final Re sult [facility] [address] [place] [address] [phone] * Hemoglobin A1c (10/21/2024 8:23 AM EDT) Hemoglobin A1c 5.6 <6.0 % [facility] Comment:Hemoglobin A1C Refer ence Range Adults: 4.8 - 6.0 % Non diabetic: < 6.0 % Goal: < 7.0 %Additional Action Suggested: > 8.0 %Note: Hemoglobin A1c results are invalid for patients with abnormal amounts of HbF. Blood transfusions may impact the HbA1c concentration in the patient sample. Estimated Average Glucose 114 mg/dL [facility] Comment:eAG = Estimated ave rage glucose which is %A1C expressed asaverage glucose, using the formula of the Z9N-[id number] Glucose study (ADAG), Diabetes Care, Vol.31,#8,Oct. 2007 Blood Venous blood specimen / Unknown 10/21/2024 8:23 AM EDT 10/21/2024 11:18 AM EDT [facility] LAB BLOOD ORDERABLES Final Re sult [facility] [address] [place] [address] [phone] * (ABNORMAL) Comprehensive Metabolic Panel (10/21/2024 8:23 AM EDT) Sodium 140 135 - 145 mmol/L [facility] Potassium 4.3 3.3 - 5.1 mmol/L [facility] Chloride 106 96 - 108 mmol/L [facility] Carbon Dioxide 27 22 - 29 mmol/L [facility] Anion Gap 11(L) 12 - 20 [facility] Urea Nitrogen (BUN) 12 9 - 16 mg/dL [facility] Creatinine, Serum 0.60 0.5 - 1.4 mg/dL [facility] Estimated Glomerular Filt Rate >60 [facility] Comment:Chronic Kidney Disea se: Estimated GFR < 60 mL/min/1.06i0Vqduxp Kidney Disease: Estimated GFR < 15 mL/min/1.73m2 Glucose 98 60 - 115 mg/dL [facility] Calcium 9.0 8.4 - 10.2 mg/dL [facility] Bilirubin, Total 0.4 0.0 - 1.0 mg/dL [facility] Aspartate Amino Transferase 24 5 - 31 U/L [facility] Alanine Aminotransferase 20 0 - 31 U/L [facility] Total Protein 7.5 6.5 - 8.0 g/dL [facility] Albumin Level 4.4 3.5 - 5.0 g/dL [facility] Alkaline Phosphatase 104 39 - 117 U/L [facility] Blood Venous blood specimen / Unknown 10/21/2024 8:23 AM EDT 10/21/2024 11:18 AM EDT [facility] LAB BLOOD ORDERABLES Final Re sult [facility] [address] [place] [address] [phone] * (ABNORMAL) Lipid Panel, Standard (08/30/2023 11:15 AM EDT) Triglycerides 139 <150 mg/dL [facility] Comment:Desirable Triglyceri de: less than 150 mg/dLBorderline High Triglyceride 150-199 mg/dLHigh Triglyceride: 200-499 mg/dLVery High Triglyceride: greater than or equal to 5OO mg/dL Cholesterol 219(H) <200 mg/dL [facility] Comment:Desirable Cholestero l: less than 200 mg/dLBorderline High Cholesterol: 200-239 mg/dLHigh Cholesterol: greater than 239 mg/dL LDL Cholesterol Calculated 154(H) <100 mg/dL [facility] Comment:Desirable LDL: less than 100 mg/dLNear Optimal/Above Optimal LDL: 110- 129 mg/dLBorderline High LDL: 130-159 mg/dLHigh LDL: 160-189 mg/dLVery High LDL: greater than or equal to 190 mg/dL HDL Cholesterol 38(L) >40 mg/dL [facility] Comment:Desirable HDL: great er than 40 mg/dL Note: This HDL assay may give artificially low results in patients with liver disease. Blood Venous blood specimen / Unknown 08/30/2023 11:15 AM EDT 08/30/2023 1:01 PM EDT [facility] [employer] LAB BLOOD ORDERABLES Final Re sult [facility] [address] [place] [address] [phone] * BI Mammogram Screening Tomosynthesis Bilateral (08/28/2022 12:05 PM EDT) Anatomical Region Laterality Modality Breast Bilateral Mammography 08/28/2022 12:0 5 PM EDT Narrative 08/31/2022 9:22 AM EDT [facility] [address] [place] [address] Mammography Report Signed Patient: Ivana Ramirez MR#: [id number] 60 : 1970 Acct:[id number] Age/Sex: 52 / F ADM Date: 08/28/22 Loc: HO.MAMMO Attending Dr: Shannan Jorge [employer] Ordering Physician: Shannan Jorge Results: 2Beni gn Findings Date of Service: 08/28/22 Follow Up: 1 Year From Orig ina Mammogram Procedure(s): MM tomosynthesis screening BI Accession Number(s): [id number] cc: hSannan Jorge [employer] EXAMINATION: MM SCREENING DIGITAL BREAST TOMOSYNTHESIS, BILATERAL [...] in OV> 08/31/22 0919 DD/ 1205 TD/TT: Weather Stripper: OTTONIEL Procedure Note Donotuseinterpreter, Image - [facility] [address] [place] [address] Mammography Report Signed Patient: Thierry Ramirez#: [id number] 60 : 1970Acct:[id number] Age/Sex: 52 / FADM Date: 08/28/22 Loc: HO.MAMMO Attending Dr: Shannan Jorge [employer] Ordering Physician: Shannan Jorge FNPResults: 2Beni gn Findings Date of Service: 08/28/22Follow Up: 1 Year From Orig inal Mammogram Procedure(s): MM tomosynthesis screening BI Accession Number(s): [id number] cc: Shannan Jorge [employer] EXAMINATION: MM SCREENING DIGITAL BREAST TOMOSYNTHESIS, BILATERAL [...] in OV> 08/31/22 0919 DD/ 1205 TD/TT: Weather Stripper: OTTONIEL [facility] External Provider IMG BI PROCEDURES Final Result * Hepatitis C Antibody with Reflex to HCV, RNA, Quantitative, Real-Time PCR (08/08/2022 10:53 AM EDT) Hepatitis C Antibody NON-REACT CHASE NON-REACT CHASE [facility] Index 0.12 <1.00 [facility] Comment: HCV antibody was non-reactive. There is no laboratory evidence of HCV infection. In most cases, no further action is required. However, if recent HCV exposure is suspected, a test for HCV RNA (test code 36674) is suggested. For additional information please refer to http://education.[employer]/faq/MMT28f1 (This link is being provided for informational/ educational purposes only.) Blood Venous blood specimen / Unknown 08/08/2022 10:53 AM EDT 08/08/2022 10:53 AM EDT Narrative [facility] - 08/10/2022 4:35 PM EDT FASTING:YES FASTING: YES [facility] LE[employer] SALES [employer] LAB BLOOD ORDERABLES Final Re sult [facility] [address], [place] [phone] [id number] [address] [place] [phone] * HIV-1/2 Antigen and Antibodies, Fourth Generation, with Reflexes (08/08/2022 10:53 AM EDT) HIV Antigen/Antibody, 4th Generation NON-REAC TIVE NON-REAC TIVE [facility] Comment: HIV-1 antigen and HIV-1/HIV-2 antibodies were [...] purpose. For additional information please refer to http://Shoppilot.[employer]/faq/KYH921 (This link is being provided for informational/ educational purposes only.) The performance of this assay has not been clinically validated in patients less than 2 years old. Blood Venous blood specimen / Unknown 08/08/2022 10:53 AM EDT 08/08/2022 10:53 AM EDT Narrative [facility] - 08/10/2022 4:35 PM EDT FASTING:YES FASTING: YES [facility] [employer] SAL[employer] LAB BLOOD ORDERABLES Final Re sult [facility] [address], [place] [address] [employer] [facility] [address] [place] [phone] * (ABNORMAL) Colonoscopy (03/25/2020 10:43 PM EST) Colonoscopy Abnormal( A) Normal Comment:Polyps. Repeat 3 yea rs [facility] Provider HEALTH MAINTENANCE Final Result from Last 3 Months or Most Recently Relevant to Health Maintenance Insurance [facility] 2 Care Teams Clothing Worker Relationship Specialty Start Date End Date Shannan Jorge FNP [address] [place] [phone] PCP - General Family Medicine 11/17/21
== END ==
LOC: HO.SL 20:30
PROVIDERS: PCP Registered Nurse; Visit Provider Registered Nurse
DX: G47.33 Obstructive sleep apnea (adult) (pediatric) (principal); G47.19 Other hypersomnia; R06.83 Snoring
CPT/HCPCS: 95810

== ENCOUNTER → 2024-12-08 20:30 | Outpatient (BNV) | payer OTHER, SELFPAY | PROVIDERS: PCP Registered Nurse; Visit Provider Internal Medicine | DX: G47.33 Obstructive sleep apnea (adult) (pediatric) (principal); R06.83 Snoring | CPT/HCPCS: 95810 ==

== ENCOUNTER 2025-02-05 11:41 | Outpatient (REF) | payer OTHER, SELFPAY ==
[2025-02-05 13:41] LABS: MANUAL DIFF FLAG NO
[2025-02-05 13:48] LABS: Hematocrit 41.6 % (37.0-47.0); Hemoglobin 13.6 g/dl (12.0-16.0); Imm Gran Abs Auto 0.05 X10*3/uL (0.00-0.03); Imm Gran Pct Auto 0.5 % (0.0-0.4); Lymphocytes Absolute Auto 2.4 X10*3/uL (1.2-4.9); Mean Corpuscular HGB Conc 32.7 g/dl (31.0-35.0); Mean Corpuscular Hemoglobin 28.2 pg (27.0-33.0); Mean Corpuscular Volume 86.1 fL (80.0-98.0); NRBC Abs Auto 0.000 X10*3/uL (0.0-0.012); NRBC Pct Auto 0.0 /100WBC (0.0-0.2); Platelet Count 272 X10*3/uL (160-400); Red Blood Count 4.83 X10*6/uL (4.20-5.50); White Blood Count 10.6 X10*3/uL (4.8-10.8)
[2025-02-05 14:10] LABS: Alanine Aminotransferase 18 U/L (0-31); Albumin Level 4.2 g/dL (3.5-5.0); Alkaline Phosphatase 106 U/L (39-117); Anion Gap 11 (12-20); Aspartate Amino Transferase 21 U/L (5-31); Blood Urea Nitrogen 14 mg/dL (9-16); Calcium 9.2 mg/dL (8.4-10.2); Carbon Dioxide 28 mmol/L (22-29); Chloride 108 mmol/L (96-108); Estimated Glomerular Filt Rate > 60; Potassium 4.0 mmol/L (3.3-5.1); Sodium 143 mmol/L (135-145); Total Protein 7.3 g/dL (6.5-8.0)
[2025-02-05 14:49] LABS: HBS Num1 0.51 mIU/mL (0-7.99); HBc Num1 0.07 S/CO (0.00-0.79); HBsAGNum1 0.37 S/CO (0.00-0.99); HIV Num 1 0.07 S/CO (0.00-0.99); Hepatitis A Antibody IgM 0.39 Index (0-0.79); Hepatitis B Surface Antigen Negative (Negative); ~HepC Num1 0.06 S/CO (0.00-0.79); ~Hepatitis A Antibody IgM Nonreactive (Nonreactive); ~Hepatitis B Surface Antibody NONREACTIVE (Nonreactive); ~Hepatitis C Antibody Nonreactive (Nonreactive)
[2025-02-09 16:19] LABS: Quantiferon TB Gold Plus 1 NEGATIVE (NEGATIVE); TB Test (QFT) Mitogen -Nil 8.94 IU/mL; TB Test (QFT) Nil 0.03 IU/mL; TB Test (QFT) Plus TB1 -Nil 0.01 IU/mL; TB Test (QFT) Plus TB2 -Nil 0.02 IU/mL
== END 2025-02-05 11:42 | disposition home or self-care (01) ==
LOC: HO.HHCL 11:41
PROVIDERS: PCP Registered Nurse; Visit Provider Internal Medicine
DX: Z11.4 Encounter for screening for human immunodeficiency virus [HIV] (principal); Z20.6 Contact with and (suspected) exposure to human immunodeficiency virus [HIV]; Z11.59 Encounter for screening for other viral diseases; Z20.5 Contact with and (suspected) exposure to viral hepatitis; L40.9 Psoriasis, unspecified
CPT/HCPCS: 36415; 80053; 84443; 85025; 86480; 86704; 86706; 86709; 86803; 87340; 87389